=== PATIENT | male | born 1950 | race Caucasian/White ===

== ENCOUNTER 2019-01-03 14:53 | Emergency (ER) | payer MEDICARE ==
--- NOTE | 2019-01-03 15:19 | RAD REPORT ---
EXAM DESCRIPTION: Dmitry Single View01/03/2019 3:12 pm CLINICAL HISTORY: Chest pain COMPARISON: none FINDINGS: The lungs appear clear of acute infiltrate. The heart is normal size IMPRESSION: No acute abnormalities displayed
[2019-01-03 15:23] LABS: Absolute Monocytes 1.7 K/uL (0.1-1.3); Absolute Neutrophil 11.5 K/uL (1.8-8.0); Basophils % 0.9 % (0-1.3); Eosinophils % 0.4 % (0-4.4); Hematocrit 47.8 % (39.6-49.0); MPV 8.5 fL (7.6-11.3); Monocytes % 10.9 % (3.3-12.3); RBC Red Blood Cell Count 5.48 M/uL (4.33-5.43)
[2019-01-03 15:25] LABS: Protime INR 1.02
[2019-01-03 15:31] LABS: Potassium 4.8 mmol/L (3.5-5.1)
--- NOTE | 2019-01-03 15:36 | RAD REPORT ---
EXAM DESCRIPTION: CT - Ct Stroke Brain Wo Cont - 01/03/2019 3:04 pm CLINICAL HISTORY: Confusion/facial droop COMPARISON: October 19, 2018 TECHNIQUE: Computed axial tomography of the head was obtained. All CT scans are performed using dose optimization technique as appropriate and may include automated exposure control or mA/KV adjustment according to patient size. FINDINGS: An intracranial bleed is not seen . The ventricles are normal in caliber. No extra-axial fluid collection is noted. Mild to moderate low-density within periventricular, deep and subcortical white matter likely ischemi c changes secondary to small vessel disease 2 millimeter low-density area within the right basal ganglia has a nonspecific appearance. It may rep resent an old lacunar infarct Fluid within the sinuses/ mastoids is not seen. IMPRESSION: No definite acute intracranial abnormality is seen. If patient's symptoms persist MRI o f the brain would be recommended. Dr Pond of the emergency room was notified at approximately 3:12 p.m. January 03, 2019
[2019-01-03] MEDS ORDERED: NA CHLORIDE 0.9% 500 ML ONE (15:59)
[2019-01-03] MEDS ORDERED: ALTEPLASE 0 ML IV ONE (15:59)
--- NOTE | 2019-01-03 16:06 | ER ---
Nurse's Notes [facility] Name: Marcio Armas Age: 68 yrs Sex: Male : 1950 Arrival Date: 01/03/2019 Time: 14:56 Bed 2 Private MD: Diagnosis: Cerebral infarction Presentation: 01/03 14:57 Presenting complaint: Child states: Last seen normal 12, daughter reports about 30 la1 minutes after that he fell and lost continence of urine, pt has left sided facial droop. Transition of care: patient was not received from another setting of care. 14:57 Method Of Arrival: Wheelchair la1 14:57 Acuity: ANA 1 la1 15:00 Onset of symptoms was January 03, 2019 at 12:00. Risk Assessment: Do you want to hurt hb yourself or someone else? Patient reports no desire to harm self or others. Initial Sepsis Screen: Does the patient meet any 2 criteria? No. Patient's initial sepsis screen is negative. Does the patient have a suspected source of infection? No. Patient's initial sepsis screen is negative. Care prior to arrival: None. Historical: - Allergies: 15:10 No Known Allergies; hb - PMHx: 15:10 COPD; Hepatitis C; hb - Immunization history:: Adult Immunizations up to date. - Social history:: Smoking status: Patient uses tobacco products, smokes one pack cigarettes per day. - Ebola Screening: : No symptoms or risks identified at this time. Screenin:13 Abuse screen: Denies threats or abuse. Denies injuries from another. Nutritional hb screening: No deficits noted. Tuberculosis screening: No symptoms or risk factors identified. Fall Risk None identified. 15:16 Patient has been NPO before screening. The patient is alert, able to follow commands. hb The patient does not exhibit slurred or garbled speech The patient is not exhibiting difficulty speaking. The patient does not exhibit difficulty understanding words. The patient is able to swallow own secretions with no drooling or need for suction. Patient tolerated one teaspoon of water. No drooling, immediate coughing, gurgling, or clearing of the throat was noted. The patient tolerated 90mL of water. No drooling, immediate coughing, gurgling, or clearing of the throat was noted. The patient passed the bedside swallow screening. Oral medications may be given as ordered. Contact Physician for further diet orders. Assessment: 14:54 Reassessment: Code Stroke called from triage, pt transported to CT via wheelchair with soco Randall RN. 15:01 Reassessment: Pt returned from CT. hb 15:02 Reassessment: Dr. Dukes at bedside. hb 15:03 VAN Scoring: Arm Drift: Patients demonstrates NO arm weakness. Patient is VAN Negative. hb 15:04 Reassessment: 20g RIGHT AC, labs collected and sent to outside lab with purple stroke hb sticker. 15:06 Reassessment: BGL 124. hb 15:14 General: Appears in no apparent distress. Behavior is calm, cooperative. Pain: Denies hb pain. Neuro: Level of Consciousness is awake, alert, obeys commands, Oriented to person, place, time, situation, Database Coordinator are equal bilaterally Weakness in left leg(s) Gait is unsteady, Speech is normal, Facial symmetry appears normal, Pupils are PERRLA, Intact. Cardiovascular: Heart tones S1 S2 present Capillary refill < 3 seconds Patient's skin is warm and dry. Respiratory: Airway is patent Trachea midline Respiratory effort is even, unlabored, Respiratory pattern is regular, symmetrical, Breath sounds with rhonchi bilaterally. GI: No signs and/or symptoms were reported involving the gastrointestinal system. : No signs and/or symptoms were reported regarding the genitourinary system. EENT: No signs and/or symptoms were reported regarding the EENT system. Derm: Skin is intact, is healthy with good turgor, Skin is pink, warm \T\ dry. Musculoskeletal: Reports left leg weakness. 15:30 Reassessment: Symptoms improved, - facial droop, - slurred speech, - arm drift, - leg hb drift. Dr. Dukes notified at bedside. 15:41 Reassessment: Sudden left sided facial droop, slurred speech, left arm and left leg hb weakness noted. Dr. Merlos notified. 16:00 Reassessment: TPA started. hb 16:02 Reassessment: Pt to Ct for CTA with Coretta JACKSON, TPA infusion continues. hb 16:26 Reassessment: Pt returned from CTA with Coretta JACKSON, TPA continues. Some symptom hb improvement, left sided facial droop and slurred speech present, - drift, bilat dental coordinator strong and equal. NIHSS 2. Vital Signs: 15:07 BP 117 / 70; Pulse 83; Resp 20; Temp 97.9(TE); Pulse Ox 99% on R/A; Weight 79.38 kg; hb Height 5 ft. 7 in. (170.18 cm); Pain 0/10; 15:07 Body Mass Index 27.41 (79.38 kg, 170.18 cm) hb Apple Coma Score: 15:05 Eye Response: spontaneous(4). Verbal Response: oriented(5). Motor Response: obeys gs commands(6). Total: 15. NIH Stroke Scale Scores: 15:05 NIHSS Score: 1 gs 15:10 NIHSS Score: 1 hb 15:35 NIHSS Score: 11 gs ED Course: 14:56 Patient arrived in ED. as 14:56 Julio Cesar Dukes MD is Attending Physician. gs 14:58 Triage completed. la1 15:04 Inserted saline lock: 20 gauge in right antecubital area, using aseptic technique. hb Blood collected. 15:06 CT Stroke Brain w/o Contrast In Process Unspecified. EDMS 15:08 Coretta Siu, RN is Primary Nurse. hb 15:10 Arm band placed on. hb 15:13 Stroke CXR 1 View In Process Unspecified. EDMS 15:16 Patient has correct armband on for positive identification. Bed in low position. Call hb light in reach. Side rails up X 1. 16:24 CT Head Angio In Process Unspecified. EDMS 16:24 Neck Angio In Process Unspecified. EDMS 16:24 CT completed. Patient tolerated procedure well. Patient moved back from CT. bq 16:47 No provider procedures requiring assistance completed. Patient transferred, IV remains hb in place. Administered Medications: 16:00 Drug: Alteplase {Co-Signature: soco (Coretta Siu RN).} Route: IV Thrombolytics; Rate: iw calculated rate; 16:40 Follow up: Response: No adverse reaction; Marked relief of symptoms hb Point of Care Testing: Blood Glucose: 15:06 Blood Glucose: 124 mg/dL; hb Ranges: Outcome: 16:06 ER care complete, transfer ordered by . gs 16:47 Transferred by ground EMS to [facility]. hb 16:47 Condition: stable 16:47 Instructed on the need for transfer, Demonstrated understanding of instructions. 16:49 Patient left the ED. NIH Stroke Scale - NIH Stroke Score Date: 01/03/2019 Time: 15:05 Total Score = 1 1a. Level of Consciousness (LOC) - 0(Alert) 1b. Level of Consciousness (LOC) (Year \T\ Age) - 0(Both) 1c. LOC Commands (Open \T\ Closes Eyes/[place]) - 0(Both) 2. Best Gaze (Lateral Gaze Paresis) - 0(Normal) 3. Visual Field Loss - 0(No visual loss) 4. Facial Palsy - 0(Normal) 5a. Left Arm: Motor (10-second hold) - 0(No drift) 5b. Right Arm: Motor (10-second hold) - 0(No drift) 6a. Left Leg: Motor (5-second hold - always test supine) - 1(Drift) 6b. Right Leg: Motor (5-second hold - always test supine) - 0(No drift) 7. Limb Ataxia (finger/nose \T\ heel/sam - test with eyes open) - 0(Absent) 8. Sensory Loss (pinprick arms/legs/face) - 0(Normal) 9. Best Language: Aphasia (description/naming/reading) - 0(No aphasia) 10. Dysarthria (speech clarity - read or repeat words) - 0(Normal) 11. Extinction and Inattention (visual/tactile/auditory/spatial/personal) - 0(No abnormality) Initials: NIH Stroke Scale - NIH Stroke Score Date: 01/03/2019 Time: 15:10 Total Score = 1 1a. Level of Consciousness (LOC) - 0(Alert) 1b. Level of Consciousness (LOC) (Year \T\ Age) - 0(Both) 1c. LOC Commands (Open \T\ Closes Eyes/[place]) - 0(Both) 2. Best Gaze (Lateral Gaze Paresis) - 0(Normal) 3. Visual Field Loss - 0(No visual loss) 4. Facial Palsy - 0(Normal) 5a. Left Arm: Motor (10-second hold) - 0(No drift) 5b. Right Arm: Motor (10-second hold) - 0(No drift) 6a. Left Leg: Motor (5-second hold - always test supine) - 1(Drift) 6b. Right Leg: Motor (5-second hold - always test supine) - 0(No drift) 7. Limb Ataxia (finger/nose \T\ heel/sam - test with eyes open) - 0(Absent) 8. Sensory Loss (pinprick arms/legs/face) - 0(Normal) 9. Best Language: Aphasia (description/naming/reading) - 0(No aphasia) 10. Dysarthria (speech clarity - read or repeat words) - 0(Normal) 11. Extinction and Inattention (visual/tactile/auditory/spatial/personal) - 0(No abnormality) Initials: NIH Stroke Scale - NIH Stroke Score Date: 01/03/2019 Time: 15:35 Total Score = 11 1a. Level of Consciousness (LOC) - 0(Alert) 1b. Level of Consciousness (LOC) (Year \T\ Age) - 0(Both) 1c. LOC Commands (Open \T\ Closes Eyes/[place]) - 0(Both) 2. Best Gaze (Lateral Gaze Paresis) - 0(Normal) 3. Visual Field Loss - 0(No visual loss) 4. Facial Palsy - 2(Partial paralysis) 5a. Left Arm: Motor (10-second hold) - 3(No effort against gravity) 5b. Right Arm: Motor (10-second hold) - 0(No drift) 6a. Left Leg: Motor (5-second hold - always test supine) - 3(No effort against gravity) 6b. Right Leg: Motor (5-second hold - always test supine) - 0(No drift) 7. Limb Ataxia (finger/nose \T\ heel/sam - test with eyes open) - 1(Present in one limb) 8. Sensory Loss (pinprick arms/legs/face) - 1(Mild to moderate loss) 9. Best Language: Aphasia (description/naming/reading) - 0(No aphasia) 10. Dysarthria (speech clarity - read or repeat words) - 1(Mild to Moderate) 11. Extinction and Inattention (visual/tactile/auditory/spatial/personal) - 0(No abnormality) Initials: Signatures: Dispatcher [employer] EDMS Jesusita Rivera Amelia as Williams, Irene, RN RENETTA Prakash Bishop RN RN laCoretta Maradiaga RN RN Julio Cesar Dukes MD MD Coretta Siu RN Corrections: (The following items were deleted from the chart) 15:14 14:56 Reassessment: Code Stroke called from triage, pt transported to CT via hb wheelchair with Prakash wan
--- NOTE | 2019-01-03 16:07 | EDPHYS ---
Physician Documentation [facility] Name: Marcio Armas Age: 68 yrs Sex: Male : 1950 Arrival Date: 01/03/2019 Time: 14:56 Bed 2 Private MD: ED Physician Julio Cesar Dukes HPI: 01/03 15:49 This 68 yrs old Male presents to ER via Wheelchair with complaints of S/S of gs Possible Stroke. 15:49 The patient's problem is reported as a facial droop, weakness, in the left upper gs extremity, in the left lower extremity, in the left side of face. Onset: The symptoms/episode began/occurred today, at 12:00. Duration: This was a single incident, resolved. Associated signs and symptoms: Pertinent negatives: abdominal pain, chest pain. Severity of symptoms: At their worst the symptoms were severe in the emergency department the symptoms have resolved and did so just prior to arrival. The patient has experienced a previous episode, last week. Historical: - Allergies: 15:10 No Known Allergies; hb - PMHx: 15:10 COPD; Hepatitis C; hb - Immunization history:: Adult Immunizations up to date. - Social history:: Smoking status: Patient uses tobacco products, smokes one pack cigarettes per day. - Ebola Screening: : No symptoms or risks identified at this time. ROS: 15:49 All other systems are negative. gs Exam: 15:49 Radiologist reports: no bleeding, no obvious cva gs 15:52 Head/Face: Normocephalic, atraumatic. Eyes: Pupils equal round and reactive to light, gs extra-ocular motions intact. Lids and lashes normal. Conjunctiva and sclera are non-icteric and not injected. Cornea within normal limits. Periorbital areas with no swelling, redness, or edema. ENT: Nares patent. No nasal discharge, no septal abnormalities noted. Tympanic membranes are normal and external auditory canals are clear. Oropharynx with no redness, swelling, or masses, exudates, or evidence of obstruction, uvula midline. Mucous membranes moist. Neck: Trachea midline, no thyromegaly or masses palpated, and no cervical lymphadenopathy. Supple, full range of motion without nuchal rigidity, or vertebral point tenderness. No Meningismus. Chest/axilla: Normal chest wall appearance and motion. Nontender with no deformity. No lesions are appreciated. Cardiovascular: Regular rate and rhythm with a normal S1 and S2. No gallops, murmurs, or rubs. Normal PMI, no JVD. No pulse deficits. Respiratory: Lungs have equal breath sounds bilaterally, clear to auscultation and percussion. No rales, rhonchi or wheezes noted. No increased work of breathing, no retractions or nasal flaring. Abdomen/GI: Soft, non-tender, with normal bowel sounds. No distension or tympany. No guarding or rebound. No evidence of tenderness throughout. Back: No spinal tenderness. No costovertebral tenderness. Full range of motion. Skin: Warm, dry with normal turgor. Normal color with no rashes, no lesions, and no evidence of cellulitis. MS/ Extremity: Pulses equal, no cyanosis. Neurovascular intact. Full, normal range of motion. 15:52 Constitutional: The patient appears alert, awake. 15:52 ECG was reviewed by the Attending Physician. Vital Signs: 15:07 BP 117 / 70; Pulse 83; Resp 20; Temp 97.9(TE); Pulse Ox 99% on R/A; Weight 79.38 kg; hb Height 5 ft. 7 in. (170.18 cm); Pain 0/10; 15:07 Body Mass Index 27.41 (79.38 kg, 170.18 cm) hb NIH Stroke Scale Scores: 15:05 NIHSS Score: 1 gs 15:10 NIHSS Score: 1 hb 15:35 NIHSS Score: 11 gs Apple Coma Score: 15:05 Eye Response: spontaneous(4). Verbal Response: oriented(5). Motor Response: obeys gs commands(6). Total: 15. MDM: 15:05 Differential diagnosis: CVA, TIA, paralysis, metabolic disorder. Data reviewed: vital gs signs, nurses notes, lab test result(s), EKG, radiologic studies. Counseling: I had a detailed discussion with the patient and/or guardian regarding: the historical points, exam findings, and any diagnostic results supporting the discharge/admit diagnosis, the need to transfer to another facility. ED course: dramatic change after initial assessment where pt appeared to have completely resolved symptoms therefore a TIA, 1535 sustained neurologic deficits left side, pt awake alert, discussed with dr chin will give tpa, rb discussed no obvious contraindications, also will get cta head and neck. 15:13 Patient medically screened. 01/03 14:57 Order name: Basic Metabolic Panel; Complete Time: 15:51 01/03 14:57 Order name: CBC with Diff; Complete Time: 15:30 01/03 14:57 Order name: Protime (+inr); Complete Time: 15:51 01/03 14:57 Order name: Ptt, Activated; Complete Time: 15:51 01/03 14:57 Order name: CT Stroke Brain w/o Contrast; Complete Time: 15:51 01/03 15:10 Order name: Glucose, Ancillary Testing; Complete Time: 15:15 EDMS 01/03 14:57 Order name: Stroke CXR 1 View; Complete Time: 15:30 01/03 14:57 Order name: EKG; Complete Time: 15:00 01/03 14:57 Order name: Accucheck; Complete Time: 15:19 01/03 14:57 Order name: Cardiac monitoring; Complete Time: 15:19 01/03 15:34 Order name: CT Head Angio; Complete Time: 17:15 01/03 15:45 Order name: Neck Angio; Complete Time: 17:15 EDNV 01/03 14:57 Order name: EKG - Nurse/Tech; Complete Time: 15:19 01/03 14:57 Order name: IV Saline Lock; Complete Time: 15:19 01/03 14:57 Order name: Labs collected and sent; Complete Time: 15:19 01/03 14:57 Order name: NPO; Complete Time: 15:19 01/03 14:57 Order name: O2 Per Protocol; Complete Time: 15:19 01/03 14:57 Order name: O2 Sat Monitoring; Complete Time: 15:19 01/03 14:57 Order name: Stroke Swallow Screen; Complete Time: 15:19 gs EC:52 Rate is 76 beats/min. Rhythm is regular. TX interval is normal. QRS interval is normal. gs QT interval is normal. T waves are Flattened. No ST changes noted. Clinical impression: NSR w/ Non-specific ST/T Changes. Interpreted by me. Administered Medications: 16:00 Drug: Alteplase {Co-Signature: hb (Coretta Siu RN).} Route: IV Thrombolytics; Rate: iw calculated rate; 16:40 Follow up: Response: No adverse reaction; Marked relief of symptoms hb Point of Care Testing: Blood Glucose: 15:06 Blood Glucose: 124 mg/dL; hb Ranges: Critical Glucose Levels:Adult <50 mg/dl or >400 mg/dl <40 mg/dl or >180 mg/dl Disposition: 01/03/19 16:06 Transfer ordered to [facility]. Diagnosis is Cerebral infarction. - Reason for transfer: Higher level of care. - Accepting physician is giuseppe. - Condition is Stable. - Problem is new. - Symptoms are unchanged. Critical care time excluding procedures: 15:05 Critical care time: Bedside Care: 10 minutes, Consultation: 10 minutes, Family gs Intervention: 10 minutes. Total time: 30 minutes NIH Stroke Scale - NIH Stroke Score Date: 01/03/2019 Time: 15:05 Total Score = 1 1a. Level of Consciousness (LOC) - 0(Alert) 1b. Level of Consciousness (LOC) (Year \T\ Age) - 0(Both) 1c. LOC Commands (Open \T\ Closes Eyes/Press Hand Supervisor) - 0(Both) 2. Best Gaze (Lateral Gaze Paresis) - 0(Normal) 3. Visual Field Loss - 0(No visual loss) 4. Facial Palsy - 0(Normal) 5a. Left Arm: Motor (10-second hold) - 0(No drift) 5b. Right Arm: Motor (10-second hold) - 0(No drift) 6a. Left Leg: Motor (5-second hold - always test supine) - 1(Drift) 6b. Right Leg: Motor (5-second hold - always test supine) - 0(No drift) 7. Limb Ataxia (finger/nose \T\ heel/sam - test with eyes open) - 0(Absent) 8. Sensory Loss (pinprick arms/legs/face) - 0(Normal) 9. Best Language: Aphasia (description/naming/reading) - 0(No aphasia) 10. Dysarthria (speech clarity - read or repeat words) - 0(Normal) 11. Extinction and Inattention (visual/tactile/auditory/spatial/personal) - 0(No abnormality) Initials: antonio NIH Stroke Scale - NIH Stroke Score Date: 01/03/2019 Time: 15:10 Total Score = 1 1a. Level of Consciousness (LOC) - 0(Alert) 1b. Level of Consciousness (LOC) (Year \T\ Age) - 0(Both) 1c. LOC Commands (Open \T\ Closes Eyes/Press Hand Supervisor) - 0(Both) 2. Best Gaze (Lateral Gaze Paresis) - 0(Normal) 3. Visual Field Loss - 0(No visual loss) 4. Facial Palsy - 0(Normal) 5a. Left Arm: Motor (10-second hold) - 0(No drift) 5b. Right Arm: Motor (10-second hold) - 0(No drift) 6a. Left Leg: Motor (5-second hold - always test supine) - 1(Drift) 6b. Right Leg: Motor (5-second hold - always test supine) - 0(No drift) 7. Limb Ataxia (finger/nose \T\ heel/sam - test with eyes open) - 0(Absent) 8. Sensory Loss (pinprick arms/legs/face) - 0(Normal) 9. Best Language: Aphasia (description/naming/reading) - 0(No aphasia) 10. Dysarthria (speech clarity - read or repeat words) - 0(Normal) 11. Extinction and Inattention (visual/tactile/auditory/spatial/personal) - 0(No abnormality) Initials: NIH Stroke Scale - NIH Stroke Score Date: 01/03/2019 Time: 15:35 Total Score = 11 1a. Level of Consciousness (LOC) - 0(Alert) 1b. Level of Consciousness (LOC) (Year \T\ Age) - 0(Both) 1c. LOC Commands (Open \T\ Closes Eyes/Press Hand Supervisor) - 0(Both) 2. Best Gaze (Lateral Gaze Paresis) - 0(Normal) 3. Visual Field Loss - 0(No visual loss) 4. Facial Palsy - 2(Partial paralysis) 5a. Left Arm: Motor (10-second hold) - 3(No effort against gravity) 5b. Right Arm: Motor (10-second hold) - 0(No drift) 6a. Left Leg: Motor (5-second hold - always test supine) - 3(No effort against gravity) 6b. Right Leg: Motor (5-second hold - always test supine) - 0(No drift) 7. Limb Ataxia (finger/nose \T\ heel/sam - test with eyes open) - 1(Present in one limb) 8. Sensory Loss (pinprick arms/legs/face) - 1(Mild to moderate loss) 9. Best Language: Aphasia (description/naming/reading) - 0(No aphasia) 10. Dysarthria (speech clarity - read or repeat words) - 1(Mild to Moderate) 11. Extinction and Inattention (visual/tactile/auditory/spatial/personal) - 0(No abnormality) Initials: Signatures: Dispatcher [employer] Pita Brown RN RN Coretta Siu RN RN Julio Cesar Dukes MD MD Coretta Siu RN Corrections: (The following items were deleted from the chart) 16:49 16:06 01/03/2019 16:06 Transfer ordered to [facility]. Diagnosis is Cerebral infarction. Reason for transfer: Higher level of care. Accepting physician is giuseppe. Condition is Stable. Problem is new. Symptoms are unchanged.
--- NOTE | 2019-01-03 16:36 | RAD REPORT ---
EXAM DESCRIPTION: CTHead angio01/03/2019 4:23 pm CLINICAL HISTORY: cva COMPARISON: None TECHNIQUE: CT angiogram of the head was obtained. 3D MIPS reconstruction performed. All CT scans are performed using dose optimization technique as appropriate and may include automated exposure control or mA/KV adjustment according to patient size. FINDINGS: The basilar, internal carotid, anterior cerebral, middle cerebral and posterior cerebral a rteries are normal caliber. An aneurysm is not seen. Dolichoectasia of the vertebrobasilar artery A significant stenosis is not noted. IMPRESSION: No significant abnormality displayed
--- NOTE | 2019-01-03 16:40 | RAD REPORT ---
EXAM DESCRIPTION: Candy Angio01/03/2019 4:24 pm CLINICAL HISTORY: cva COMPARISON: None TECHNIQUE: 50 cc Isovue 370 was administered intravenously. 3D MIP reconstruction performed All CT scans are performed using dose optimization technique as appropriate and may include automated exposure control or mA/KV adjustment according to patient size. FINDINGS: Mild plaque within the right common and right internal carotid arteries Mild plaque within the left common carotid artery and left carotid bulb. Mild calcified plaque within the proximal to mid left internal carotid artery The internal carotid arteries are tortuous The vertebral arteries are codominant without visualization of an abnormality IMPRESSION: Mild plaque within the common and internal carotid arteries. NASCET criteria used. Mild 0-49% stenosis Moderate 50-69% stenosis Severe 70-99% stenosis
--- NOTE | 2019-01-03 20:48 | EKG ---
Test Date: 2019-01-03 Test Time: 15:13:58 [place] Machine Operator: JANET MEASUREMENT RESULTS: Intervals: Rate: 76 OH: 138 QRSD: 94 QT: 372 QTc: 418 Fisher: P: 43 OH: 138 QRS: 43 T: 81 INTERPRETIVE STATEMENTS: Normal sinus rhythm Nonspecific ST and T wave abnormality Abnormal ECG No previous ECG available for comparison Electronically Signed On 01-03-19 20:47:35 CDT by Paul Stacy
== END 2019-01-03 16:49 | disposition short-term general hospital (02) ==
LOC: ER 14:53
DX: I63.9 Cerebral infarction, unspecified (principal); R29.711 NIHSS score 11; J44.9 Chronic obstructive pulmonary disease, unspecified; Z72.0 Tobacco use
CPT/HCPCS: 93005; 85025; 80048; 36415; 85610; 82962; 85730; 70496; 70498; 70450; 71045; 96374; Q9967; 92977; 99291; J2997

== ENCOUNTER 2019-02-15 18:56 | Emergency (ER) | payer MEDICARE ==
--- OUTSIDE RECORDS SUMMARY | 2019-02-15 18:59 | XMS REPORT | Clinical Summary ---
:1950 Author Organization [facility] Address [address] [place] [address] Care Team Providers Name Role Phone Unavailable Primary Care Provider Unavailable Allergies No Known Allergies Medications Medication Sig Dispensed Refills Start Date End Date Status albuterol HFA Inhale 1 puff by 0 Active (VENTOLIN HFA) 90 mouth via mcg/actuation inhaler 4 (four) inhaler times daily as needed for Wheezing. lisinopril Take 10 mg by 0 Active (PRINIVIL,ZESTRIL) mouth daily. 10 MG tablet mometasone-formoter Inhale 1 puff by 0 Active ol (DULERA) 100-5 mouth via mcg/actuation inhaler 3 inhaler (three) times daily. nitroglycerin Place 0.4 mg 0 Active (NITROSTAT) 0.4 MG under the tongue SL tablet every 5 (five) minutes as needed for Chest pain (as needed for chest pain) Put 1 pill under tongue every 5min as needed for chest pain.No more than 3 doses in 15min.Call 911 if pain is unrelieved 5min after 1st dose . aspirin 81 MG Take 1 tablet 30 tablet 2 01/07/2019 Active chewable tablet (81 mg total) by 9 mouth daily for 90 days. atorvastatin Take 1 tablet 30 tablet 2 01/06/2019 Active (LIPITOR) 80 MG (80 mg total) by 9 tablet mouth nightly for 90 days. carvedilol (COREG) Take 1 tablet 60 tablet 2 01/08/2019 Active 3.125 MG tablet (3.125 mg total) 9 by mouth 2 (two) times daily for 90 days. amLODIPine Take 1 tablet 30 tablet 2 01/08/2019 Active (NORVASC) 10 MG (10 mg total) by 9 tablet mouth daily for 90 days. sodium chloride 1 Take 1 tablet (1 21 tablet 0 01/06/2019 gram tablet g total) by 9 mouth 3 (three) times daily with meals for 7 days. amLODIPine Take 1 tablet 30 tablet 2 01/08/2019 Discontinued (NORVASC) 10 MG (10 mg total) by 9 tablet mouth daily for 90 days. Active Problems Problem Noted Date Left hemiparesis 01/05/2019 Chronic bronchitis 01/04/2019 Stroke 01/03/2019 Encounters Date Type Specialty Care Team Description 01/07/2019 Surgery Meri Guevara CATH & PCI MD Edwin 01/05/2019 Orders Only General Internal Medicine 01/03/2019 - Hospital Encounter General Internal Trell, Cerebrovascular accident (CVA), unspecified mechanism (HCC); 01/08/2019 Medicine MD Guillermo TIA (transient ischemic attack); Kavin Edgar Atrial fibrillation, transient (HCC); MD Cain Abnormal nuclear stress test; Adan Coronary artery disease involving mashpee coronary artery of mashpee heart without angina pectoris Farzaneh Holliday MD 01/03/2019 Travel after 02/14/2018 Social History Tobacco Use Types Packs/Day Years Used Date Current Every Day Smoker 2 Smokeless Tobacco: Never Used Comments: smokling for the last 55 years Alcohol Use Drinks/Week oz/Week Comments Yes 2 Cans of beer 1.2 2-3 cans of beer a day Sex Assigned at Date Recorded Not on file Job Start Date Occupation Industry Not on file Not on file Not on file Travel History Travel Start Travel End No recent travel history available. Last Filed Vital Signs Vital Sign Reading Time Taken Blood Pressure 167/80 01/08/2019 10:30 AM CDT Pulse 73 01/08/2019 10:30 AM CDT Temperature 36.6 C (97.9 F) 01/08/2019 10:30 AM CDT Respiratory Rate 18 01/08/2019 10:30 AM CDT Oxygen Saturation 97% 01/08/2019 10:30 AM CDT Inhaled Oxygen Concentration - - Weight 80.3 kg (177 lb) 01/08/2019 6:00 AM CDT Height 165.1 cm (5' 5") 01/03/2019 6:00 PM CDT Body Mass Index 29.45 01/08/2019 6:00 AM CDT Plan of Treatment Not on file Procedures Procedure Name Priority Date/Time Associated Diagnosis Comments REPORT OF PROCEDURE - 01/12/2019 6:40 ENDOSCOPY SCAN AM CDT CARDIAC CATH REPORT - 01/12/2019 6:40 SCAN AM CDT RHYTHM STRIP - SCAN 01/12/2019 6:40 AM CDT L CATH & PCI 01/07/2019 6:31 Chest pain, PM CDT unspecified type CBC W/PLT COUNT & Routine 01/07/2019 8:06 Results for this AUTO DIFFERENTIAL AM CDT procedure are in the results section. PROTHROMBIN TIME/INR Routine 01/07/2019 8:06 Results for this AM CDT procedure are in the results section. BASIC METABOLIC PANEL Routine 01/07/2019 8:06 Results for this (7) AM CDT procedure are in the results section. CBC W/PLT COUNT & Routine 01/07/2019 8:06 Results for this AUTO DIFFERENTIAL AM CDT procedure are in the results section. NM MYOCARDIAL Routine 01/06/2019 1:09 Results for this PERFUSION SPECT, PM CDT procedure are in PHARM(LEXISCAN) the results section. TREADMILL Routine 01/06/2019 11:28 Results for this TOLERANCE(NON-NUCLEAR AM CDT procedure are in TREADMILL) the results section. ECG 12-LEAD Routine 01/06/2019 11:17 Results for this AM CDT procedure are in the results section. ECG 12-LEAD Routine 01/06/2019 11:17 Results for this AM CDT procedure are in the results section. ECG 12-LEAD Routine 01/06/2019 11:17 AM CDT Procedure Note - Interface, External Ris In - 01/06/2019 11:51 AM CDT Ventricular Rate 64 BPM Atrial Rate 64 BPM P-R Interval 148 ms QRS Duration 102 ms Q-T Interval 400 ms QTC Calculation(Bazett) 412 ms P [place] 49 degrees R [place] 47 degrees T [place] 61 degrees Normal sinus rhythm Normal ECG CBC W/PLT COUNT & AUTO Routine 01/06/2019 3:54 AM CDT Results for this DIFFERENTIAL procedure are in the results section. CBC W/PLT COUNT & AUTO Routine 01/06/2019 3:54 AM CDT Results for this DIFFERENTIAL procedure are in the results section. BASIC METABOLIC PANEL (7) Routine 01/06/2019 3:54 AM CDT ECG 12-LEAD Routine 01/05/2019 3:36 PM CDT Procedure Note - Interface, External Ris In - 01/05/2019 3:42 PM CDT Ventricular Rate 65 BPM Atrial Rate 65 BPM P-R Interval 150 ms QRS Duration 98 ms Q-T Interval 388 ms QTC Calculation(Bazett) 403 ms P [place] 29 degrees R [place] 25 degrees T [place] 52 degrees Normal sinus rhythm Normal ECG No previous ECGs available ECG 12-LEAD STAT 01/05/2019 3:36 PM CDT CBC W/PLT COUNT & AUTO Routine 01/05/2019 3:11 AM CDT Results for this DIFFERENTIAL procedure are in the results section. CBC W/PLT COUNT & AUTO Routine 01/05/2019 3:11 AM CDT Results for this DIFFERENTIAL procedure are in the results section. BASIC METABOLIC PANEL (7) Routine 01/05/2019 3:11 AM CDT ECHOCARDIOGRAM REPORT - SCAN 01/04/2019 9:21 PM CDT MR BRAIN WITHOUT IV CONTRAST Routine 01/04/2019 6:[address] ABDOMEN/PELVIS WITH IV Routine 01/04/2019 5:58 PM CDT Results for this CONTRAST procedure are in the results section. CT CHEST WITH IV CONTRAST Routine 01/04/2019 5:58 PM CDT HEPATIC FUNCTION PANEL Routine 01/04/2019 1:46 PM CDT MAGNESIUM Routine 01/04/2019 10:00 AM CDT 2D ECHO W/ DOPPLER Routine 01/04/2019 9:27 AM CDT Results for this (CW/PW/COLOR) procedure are in the results section. CBC W/PLT COUNT & AUTO Routine 01/04/2019 3:43 AM CDT Results for this DIFFERENTIAL procedure are in the results section. MAGNESIUM Routine 01/04/2019 3:43 AM CDT PHOSPHORUS Routine 01/04/2019 3:43 AM CDT CBC W/PLT COUNT & AUTO Routine 01/04/2019 3:43 AM CDT Results for this DIFFERENTIAL procedure are in the results section. LIPID PANEL Routine 01/04/2019 3:43 AM CDT BASIC METABOLIC PANEL (7) Routine 01/04/2019 3:43 AM CDT TSH Routine 01/03/2019 7:33 PM CDT VITAMIN B12 Routine 01/03/2019 7:33 PM CDT HEMOGLOBIN A1C Routine 01/03/2019 7:33 PM CDT after 02/14/2018 Results EKG-SCANNED (01/12/2019 6:40 AM CDT) Narrative Performed At CARDIAC CATH REPORT - SCAN (01/12/2019 6:40 AM CDT) Narrative Performed At RHYTHM STRIP - SCAN (01/12/2019 6:40 AM CDT) Narrative Performed At CBC with platelet count + automated diff (01/07/2019 8:06 AM CDT)Only the most recent of4 resultswithin the time period is included. WBC 9.1 3.5 - 10.5 K/L [facility] RBC 5.24 4.63 - 6.08 M/L [facility] Hemoglobin 15.4 13.7 - 17.5 GM/DL [facility] Hematocrit 44.4 40.1 - 51.0 % [facility] MCV 84.7 79.0 - 92.2 fL [facility] MCH 29.4 25.7 - 32.2 pg [facility] MCHC 34.7 32.3 - 36.5 GM/DL [facility] RDW 13.3 11.6 - 14.4 % [facility] Platelets 229 150 - 450 K/CU MM [facility] MPV 9.5 9.4 - 12.4 fL [facility] nRBC 0 0 - 0 /100 WBC [facility] % Neutros 66 % [facility] % Lymphs 21 % [facility] % Monos 10 % [facility] % Eos 2 % [facility] % Baso 1 % [facility] # Neutros 6.00 (H) 1.78 - 5.38 K/L [facility] # Lymphs 1.86 1.32 - 3.57 K/L [facility] # Monos 0.91 (H) 0.30 - 0.82 K/L [facility] # Eos 0.18 0.04 - 0.54 K/L [facility] # Baso 0.08 0.01 - 0.08 K/L [facility] Immature Granulocytes-Relative 0 0 - 1 % [facility] Specimen Blood Performing Organization Address City/[facility]/Zipcode Phone Number [address] [address] CENTER Prothrombin time/INR (01/07/2019 8:06 AM CDT) Protime 13.0 11.9 - 14.2 seconds [facility] INR 1.0 <=5.9 [facility] Specimen Blood Narrative Performed At Effective 12/16/2018: PT Reference Range [facility] Change New: 11.9-14.2Previous: 11.7-14.7 RECOMMENDED COUMADIN/WARFARIN INR THERAPY RANGES STANDARD DOSE: 2.0-3.0Includes: PROPHYLAXIS for venous thrombosis, systemic embolization; TREATMENT for venous thrombosis and/or pulmonary embolus. HIGH RISK: Target INR is 2.5-3.5 for patients wiht mechanical heart valves. Performing Organization Address City/[facility] Phone Number [address] [address] [phone] [facility] Basic Metabolic Panel (01/07/2019 8:06 AM CDT)Only the most recent of4 resultswithin the time period is included. Sodium 129 (L) 136 - 145 meq/L [facility] Potassium 4.8 3.5 - 5.1 meq/L [facility] Chloride 99 98 - 107 meq/L [facility] CO2 23 22 - 29 meq/L [facility] BUN 11 7 - 21 mg/dL [facility] Creatinine 0.88 0.57 - 1.25 mg/dL [facility] Glucose 105 70 - 105 mg/dL [facility] Calcium 9.3 8.4 - 10.2 mg/dL [facility] EGFR 86Comment: ESTIMATED GFR IS mL/min/1.73 sq m [facility] NOT ACCURATE CREATININE [facility] CLEARANCE IN PREDICTING GLOMERULAR FILTRATION RATE. ESTIMATED GFR IS NOT APPLICABLE FOR DIALYSIS PATIENTS. Specimen Blood Performing Organization Address City/State/Zipcode Phone Number [phone] [place] [address] [facility] NM myocardial perfusion SPECT,pharm(Lexiscan) (01/06/2019 1:09 PM CDT) Specimen Narrative Performed At FINAL REPORT [facility] PROCEDURE: MYOCARDIAL PERFUSION SPECT IMAGING (Rest/Stress) CPT CODE: 33647 INDICATION: ventricular arrhythmia CARDIOVASCULAR PROFILE: CAD History: None Risk Factors: Diabetes, tobacco use, obesity BMI: 30.5 Medications: Aspirin, atorvastatin, Lovenox STRESS PROTOCOL: Pharmacologic stress was achieved with a 10-second intravenous infusion of regadenoson 0.4 mg. The radiopharmaceutical was administered 30 seconds after the start of the regadenoson infusion. IMAGING PROTOCOL: 10.8 mCi of Tc-99m sestamibi was injected intravenously at rest, and non-gated SPECT images were obtained. Then, 30.6 mCi of Tc-99m sestamibi was injected intravenously at peak stress, and gated SPECT images were obtained. Image quality is fair. REST FINDINGS: HR: 67/min BP: 151/78 mmHg Prelim. EKG: Normal sinus rhythm. Perfusion: Decreased uptake in the inferior wall of the LV. STRESS FINDINGS: HR: 83/min (55% of MPHR) BP: 168/98 mmHg Prelim. EKG: No ischemic changes. Symptoms: Dyspnea and abdominal discomfort (treatment not required). Perfusion: Decreased uptake in the inferior wall of the LV. Wall Motion: Mild inferior hypokinesis. (LVEF 48%). IMPRESSION: 1. Abnormal study. 2. Abnormal myocardial perfusion. There is a moderate size, moderate severity, fixed perfusion abnormality in the inferior wall of the LV. 3. Mildly decreased LVEF at rest. 4. Normal extracardiac tracer distribution. 5. There is no prior study for comparison. Signed: Roselia Hope MD Report Verified Date/Time:01/06/2019 16:31:33 Reading Location: [address] Reading Room Procedure Note Interface, External Ris In - 01/06/2019 4:33 PM CDT FINAL REPORT PROCEDURE: MYOCARDIAL PERFUSION SPECT IMAGING (Rest/Stress) CPT CODE: 81076 INDICATION: ventricular arrhythmia CARDIOVASCULAR PROFILE: CAD History: None Risk Factors: Diabetes, tobacco use, obesity BMI: 30.5 Medications: Aspirin, atorvastatin, Lovenox STRESS PROTOCOL: Pharmacologic stress was achieved with a 10-second intravenous infusion of regadenoson 0.4 mg. The radiopharmaceutical was administered 30 seconds after the start of the regadenoson infusion. IMAGING PROTOCOL: 10.8 mCi of Tc-99m sestamibi was injected intravenously at rest, and non-gated SPECT images were obtained. Then, 30.6 mCi of Tc-99m sestamibi was injected intravenously at peak stress, and gated SPECT images were obtained. Image quality is fair. REST FINDINGS: HR: 67/min BP: 151/78 mmHg Prelim. EKG: Normal sinus rhythm. Perfusion: Decreased uptake in the inferior wall of the LV. STRESS FINDINGS: HR: 83/min (55% of MPHR) BP: 168/98 mmHg Prelim. EKG: No ischemic changes. Symptoms: Dyspnea and abdominal discomfort (treatment not required). Perfusion: Decreased uptake in the inferior wall of the LV. Wall Motion: Mild inferior hypokinesis. (LVEF 48%). IMPRESSION: 1. Abnormal study. 2. Abnormal myocardial perfusion. There is a moderate size, moderate severity, fixed perfusion abnormality in the inferior wall of the LV. 3. Mildly decreased LVEF at rest. 4. Normal extracardiac tracer distribution. 5. There is no prior study for comparison. Signed: Roselia Hope MD Report Verified Date/Time: 01/06/2019 16:31:33 Reading Location: [address] Reading Room Performing Organization Address City/State/[facility] Phone Number GE RIS Treadmill tolerance(Non-Nuclear Treadmill) (01/06/2019 11:28 AM CDT) Specimen Narrative Performed At Protocol Name [facility] GE MUSE Time In Exercise Phase 00:01:00 Max. Systolic BP 168 mmHg Max Diastolic BP 98 mmHg Max Heart Rate 83 BPM Max Predicted Heart Rate 150 BPM Reason For Termination Predetermined end point Reason for Test Abnormal ECG/Ventriculat tachycardia Target HR Formula (220 - Age)*100% Arrhythmias none Resting ECG Normal sinus rhythm ST Changes No Significant Changes Overall Impression Indeterminate due to pharmacological stress Chest Pain none HR Response To Exercise BP Response To Exercise ASA,Atorvastatin,Lovenox Confirmed by fellow Herberth Maier ([id number]) on 01/15/2019 9:09:35 AM Confirmed by MD ESPINO YOCHAI [id number]) on 01/18/2019 10:43:31 AM Procedure Note Interface, External Ris In - 01/18/2019 10:43 AM CDT Protocol Name [email or web address] Time In Exercise Phase 00:01:00 Max. Systolic BP 168 mmHg Max Diastolic BP 98 mmHg Max Heart Rate 83 BPM Max Predicted Heart Rate 150 BPM Reason For Termination Predetermined end point Reason for Test Abnormal ECG/Ventriculat tachycardia Target HR Formula (220 - Age)*100% Arrhythmias none Resting ECG Normal sinus rhythm ST Changes No Significant Changes Overall Impression Indeterminate due to pharmacological stress Chest Pain none HR Response To Exercise BP Response To Exercise ASA,Atorvastatin,Lovenox Confirmed by fellow Herberth Maier ([id number]) on 01/15/2019 9:09:35 AM Confirmed by MD ESPINO YOCHAI ([id number]) on 01/18/2019 10:43:31 AM Performing Organization Address City/[facility] Phone Number GE MUSE ECG 12 lead (01/06/2019 11:17 AM CDT)Only the most recent of3 resultswithin the time period is included. Specimen Narrative Performed At Ventricular Rate 64 BPM GE MUSE Atrial Rate 64 BPM P-R Interval 148 ms QRS Duration 102 ms Q-T Interval 400 ms QTC Calculation(Bazett) 412 ms P [place] 49 degrees R [place] 47 degrees T [place] 61 degrees Normal sinus rhythm Normal ECG Confirmed by MD TSANG JORGE ([id number]) on 01/15/2019 12:00:51 PM Procedure Note Interface, External Ris In - 01/15/2019 12:01 PM CDT Ventricular Rate 64 BPM Atrial Rate 64 BPM P-R Interval 148 ms QRS Duration 102 ms Q-T Interval 400 ms QTC Calculation(Bazett) 412 ms P [place] 49 degrees R [place] 47 degrees T [place] 61 degrees Normal sinus rhythm Normal ECG Confirmed by MD TSANG JORGE ([id number]) on 01/15/2019 12:00:51 PM Performing Organization Address [facility] Phone Number [employer] ECHOCARDIOGRAM REPORT - SCAN (01/04/2019 9:21 PM CDT) Narrative Performed At MR brain without IV contrast (01/04/2019 6:35 PM CDT) Specimen Narrative Performed At FINAL REPORT [facility] MR, BRAIN, WITHOUT CONTRAST INDICATION: Stroke Stroke TECHNIQUE: Multiplanar, multisequence MR imaging of the brain without intravenous contrast. COMPARISON: None FINDINGS: There is no restricted diffusion.Scattered and confluent deep white matter changes are present bilaterally, compatible with leukoaraiosis. There is no mass effect or abnormal extra-axial fluid. The ventricles are normal in size and configuration. The larger intracranial vascular flow-voids are preserved. Paranasal sinuses and mastoid air cells are clear. There is normal bone marrow signal intensity within the calvarium and skull base. IMPRESSION: Senescent intracranial changes without evidence for acute or recent stroke or hemorrhage. Signed: JR Macdonald Robert MD Report Verified Date/Time:01/04/2019 19:00:21 Reading Location: [address] Neuro Reading Room Procedure Note Interface, External Ris In - 01/04/2019 7:02 PM CDT FINAL REPORT MR, BRAIN, WITHOUT CONTRAST INDICATION: Stroke Stroke TECHNIQUE: Multiplanar, multisequence MR imaging of the brain without intravenous contrast. COMPARISON: None FINDINGS: There is no restricted diffusion. Scattered and confluent deep white matter changes are present bilaterally, compatible with leukoaraiosis. There is no mass effect or abnormal extra-axial fluid. The ventricles are normal in size and configuration. The larger intracranial vascular flow-voids are preserved. Paranasal sinuses and mastoid air cells are clear. There is normal bone marrow signal intensity within the calvarium and skull base. IMPRESSION: Senescent intracranial changes without evidence for acute or recent stroke or hemorrhage. Signed: JR Macdonald Robert MD Report Verified Date/Time: 01/04/2019 19:00:21 Reading Location: [facility] Neuro Reading Room Performing Organization Address City/State/Zipcode Phone Number [facility] CT abdomen/pelvis with IV contrast (01/04/2019 5:58 PM CDT) Specimen Narrative Performed At FINAL REPORT [facility] TECHNIQUE: CT of the chest, abdomen, and pelvis WITH intravenous contrast and WITHOUT oral contrast. Dose modulation, iterative reconstruction, and/or weight-based adjustment of the mA/kV was utilized to reduce the radiation dose to as low as reasonably achievable. INDICATION: 68-year-old man with COPD and hepatitis C. COMPARISON: None. FINDINGS: LINES/TUBES: None. LUNGS AND AIRWAYS: Central airways are patent. Mild paraseptal emphysema. Trace mucus/debris in the left mainstem bronchus. 6 mm subpleural noncalcified nodule in the left upper lobe (axial lung window series image 14). PLEURA: The pleural spaces are clear. HEART AND MEDIASTINUM: The visualized thyroid gland is normal. No significant mediastinal, hilar, or axillary lymphadenopathy. The heart and pericardium are within normal limits. Atherosclerotic calcifications in the thoracic aorta and coronary arteries. HEPATOBILIARY: No overt cirrhosis or definite hepatic steatosis. Few scattered hepatic cysts measure up to 1 x 1.3 cm in the left hepatic lobe. 0.7 cm hypodensity in segment VII of the liver is too small to characterize. Gallbladder is unremarkable. No biliary ductal dilatation. SPLEEN: No splenomegaly. PANCREAS: No focal masses or ductal dilatation. Tiny subcentimeter calcification in the pancreatic neck. ADRENALS: 1.3 x 1.1 cm homogeneous right adrenal nodule. 1.5 x 1.1 cm homogeneous nodule in the medial limb of the left adrenal gland. KIDNEYS/URETERS: No hydronephrosis, stones, or solid mass lesions. PELVIC ORGANS/BLADDER: Enlarged prostate. The contents of the bladder are slightly hyperdense. PERITONEUM/RETROPERITONEUM: No free air or fluid. LYMPH NODES: Mildly prominent 1.1 cm periportal lymph node is nonspecific and likely reactive. VESSELS: Atherosclerotic vascular calcifications in the abdominal aorta and bilateral iliac arteries without aneurysm. Retroaortic left renal vein. GI TRACT: No distention or wall thickening. Normal appendix. BONES AND SOFT TISSUES: Degenerative changes of the visualized spine. Orthopedic hardware in both scapulas. Fat-containing left inguinal/femoral hernia. Tiny fat-containing umbilical hernia. IMPRESSION: Chest CT: *Mild emphysema. *6 mm pulmonary nodule in the left upper lobe. Follow-up chest CT is recommended in 6 months to reassess this pulmonary nodule. Abdomen and pelvis CT: *No overt cirrhosis or definite hepatic steatosis. Suboptimal evaluation for hepatocellular carcinoma on this single-phase contrast-enhanced CT. Hepatic cysts with a subcentimeter hypodensity that is too small to characterize. Abdomen MRI or CT with and without intravenous contrast (liver protocol) may be obtained for further evaluation. *Bilateral homogeneous adrenal nodules, probable adenomas. These nodules may also be further assessed on the aforementioned abdomen MRI or CT. *Slightly hyperdense contents of the bladder, which may be seen with concentrated or debris-containing urine. This finding may be correlated with urinalysis. Signed: Vipin Madsen MD Report Verified Date/Time:01/04/2019 22:53:46 Reading Location: [address] Consult Reading Room Procedure Note Interface, External Ris In - 01/04/2019 10:56 PM CDT FINAL REPORT TECHNIQUE: CT of the chest, abdomen, and pelvis WITH intravenous contrast and WITHOUT oral contrast. Dose modulation, iterative reconstruction, and/or weight-based adjustment of the mA/kV was utilized to reduce the radiation dose to as low as reasonably achievable. INDICATION: 68-year-old man with COPD and hepatitis C. COMPARISON: None. FINDINGS: LINES/TUBES: None. LUNGS AND AIRWAYS: Central airways are patent. Mild paraseptal emphysema. Trace mucus/debris in the left mainstem bronchus. 6 mm subpleural noncalcified nodule in the left upper lobe (axial lung window series image 14). PLEURA: The pleural spaces are clear. HEART AND MEDIASTINUM: The visualized thyroid gland is normal. No significant mediastinal, hilar, or axillary lymphadenopathy. The heart and pericardium are within normal limits. Atherosclerotic calcifications in the thoracic aorta and coronary arteries. HEPATOBILIARY: No overt cirrhosis or definite hepatic steatosis. Few scattered hepatic cysts measure up to 1 x 1.3 cm in the left hepatic lobe. 0.7 cm hypodensity in segment VII of the liver is too small to characterize. Gallbladder is unremarkable. No biliary ductal dilatation. SPLEEN: No splenomegaly. PANCREAS: No focal masses or ductal dilatation. Tiny subcentimeter calcification in the pancreatic neck. ADRENALS: 1.3 x 1.1 cm homogeneous right adrenal nodule. 1.5 x 1.1 cm homogeneous nodule in the medial limb of the left adrenal gland. KIDNEYS/URETERS: No hydronephrosis, stones, or solid mass lesions. PELVIC ORGANS/BLADDER: Enlarged prostate. The contents of the bladder are slightly hyperdense. PERITONEUM/RETROPERITONEUM: No free air or fluid. LYMPH NODES: Mildly prominent 1.1 cm periportal lymph node is nonspecific and likely reactive. VESSELS: Atherosclerotic vascular calcifications in the abdominal aorta and bilateral iliac arteries without aneurysm. Retroaortic left renal vein. GI TRACT: No distention or wall thickening. Normal appendix. BONES AND SOFT TISSUES: Degenerative changes of the visualized spine. Orthopedic hardware in both scapulas. Fat-containing left inguinal/femoral hernia. Tiny fat-containing umbilical hernia. IMPRESSION: Chest CT: *Mild emphysema. *6 mm pulmonary nodule in the left upper lobe. Follow-up chest CT is recommended in 6 months to reassess this pulmonary nodule. Abdomen and pelvis CT: *No overt cirrhosis or definite hepatic steatosis. Suboptimal evaluation for hepatocellular carcinoma on this single-phase contrast-enhanced CT. Hepatic cysts with a subcentimeter hypodensity that is too small to characterize. Abdomen MRI or CT with and without intravenous contrast (liver protocol) may be obtained for further evaluation. *Bilateral homogeneous adrenal nodules, probable adenomas. These nodules may also be further assessed on the aforementioned abdomen MRI or CT. *Slightly hyperdense contents of the bladder, which may be seen with concentrated or debris-containing urine. This finding may be correlated with urinalysis. Signed: Vipin Madsen MD Report Verified Date/Time: 01/04/2019 22:53:46 Reading Location: [address] Consult Reading Room Performing Organization Address City/State/Zipcode Phone Number [facility] CT chest with IV contrast (01/04/2019 5:58 PM CDT) Specimen Narrative Performed At FINAL REPORT [facility] TECHNIQUE: CT of the chest, abdomen, and pelvis WITH intravenous contrast and WITHOUT oral contrast. Dose modulation, iterative reconstruction, and/or weight-based adjustment of the mA/kV was utilized to reduce the radiation dose to as low as reasonably achievable. INDICATION: 68-year-old man with COPD and hepatitis C. COMPARISON: None. FINDINGS: LINES/TUBES: None. LUNGS AND AIRWAYS: Central airways are patent. Mild paraseptal emphysema. Trace mucus/debris in the left mainstem bronchus. 6 mm subpleural noncalcified nodule in the left upper lobe (axial lung window series image 14). PLEURA: The pleural spaces are clear. HEART AND MEDIASTINUM: The visualized thyroid gland is normal. No significant mediastinal, hilar, or axillary lymphadenopathy. The heart and pericardium are within normal limits. Atherosclerotic calcifications in the thoracic aorta and coronary arteries. HEPATOBILIARY: No overt cirrhosis or definite hepatic steatosis. Few scattered hepatic cysts measure up to 1 x 1.3 cm in the left hepatic lobe. 0.7 cm hypodensity in segment VII of the liver is too small to characterize. Gallbladder is unremarkable. No biliary ductal dilatation. SPLEEN: No splenomegaly. PANCREAS: No focal masses or ductal dilatation. Tiny subcentimeter calcification in the pancreatic neck. ADRENALS: 1.3 x 1.1 cm homogeneous right adrenal nodule. 1.5 x 1.1 cm homogeneous nodule in the medial limb of the left adrenal gland. KIDNEYS/URETERS: No hydronephrosis, stones, or solid mass lesions. PELVIC ORGANS/BLADDER: Enlarged prostate. The contents of the bladder are slightly hyperdense. PERITONEUM/RETROPERITONEUM: No free air or fluid. LYMPH NODES: Mildly prominent 1.1 cm periportal lymph node is nonspecific and likely reactive. VESSELS: Atherosclerotic vascular calcifications in the abdominal aorta and bilateral iliac arteries without aneurysm. Retroaortic left renal vein. GI TRACT: No distention or wall thickening. Normal appendix. BONES AND SOFT TISSUES: Degenerative changes of the visualized spine. Orthopedic hardware in both scapulas. Fat-containing left inguinal/femoral hernia. Tiny fat-containing umbilical hernia. IMPRESSION: Chest CT: *Mild emphysema. *6 mm pulmonary nodule in the left upper lobe. Follow-up chest CT is recommended in 6 months to reassess this pulmonary nodule. Abdomen and pelvis CT: *No overt cirrhosis or definite hepatic steatosis. Suboptimal evaluation for hepatocellular carcinoma on this single-phase contrast-enhanced CT. Hepatic cysts with a subcentimeter hypodensity that is too small to characterize. Abdomen MRI or CT with and without intravenous contrast (liver protocol) may be obtained for further evaluation. *Bilateral homogeneous adrenal nodules, probable adenomas. These nodules may also be further assessed on the aforementioned abdomen MRI or CT. *Slightly hyperdense contents of the bladder, which may be seen with concentrated or debris-containing urine. This finding may be correlated with urinalysis. Signed: Vipin Madsen MD Report Verified Date/Time:01/04/2019 22:53:46 Reading Location: [address] Consult Reading Room Procedure Note Interface, External Ris In - 01/04/2019 10:56 PM CDT FINAL REPORT TECHNIQUE: CT of the chest, abdomen, and pelvis WITH intravenous contrast and WITHOUT oral contrast. Dose modulation, iterative reconstruction, and/or weight-based adjustment of the mA/kV was utilized to reduce the radiation dose to as low as reasonably achievable. INDICATION: 68-year-old man with COPD and hepatitis C. COMPARISON: None. FINDINGS: LINES/TUBES: None. LUNGS AND AIRWAYS: Central airways are patent. Mild paraseptal emphysema. Trace mucus/debris in the left mainstem bronchus. 6 mm subpleural noncalcified nodule in the left upper lobe (axial lung window series image 14). PLEURA: The pleural spaces are clear. HEART AND MEDIASTINUM: The visualized thyroid gland is normal. No significant mediastinal, hilar, or axillary lymphadenopathy. The heart and pericardium are within normal limits. Atherosclerotic calcifications in the thoracic aorta and coronary arteries. HEPATOBILIARY: No overt cirrhosis or definite hepatic steatosis. Few scattered hepatic cysts measure up to 1 x 1.3 cm in the left hepatic lobe. 0.7 cm hypodensity in segment VII of the liver is too small to characterize. Gallbladder is unremarkable. No biliary ductal dilatation. SPLEEN: No splenomegaly. PANCREAS: No focal masses or ductal dilatation. Tiny subcentimeter calcification in the pancreatic neck. ADRENALS: 1.3 x 1.1 cm homogeneous right adrenal nodule. 1.5 x 1.1 cm homogeneous nodule in the medial limb of the left adrenal gland. KIDNEYS/URETERS: No hydronephrosis, stones, or solid mass lesions. PELVIC ORGANS/BLADDER: Enlarged prostate. The contents of the bladder are slightly hyperdense. PERITONEUM/RETROPERITONEUM: No free air or fluid. LYMPH NODES: Mildly prominent 1.1 cm periportal lymph node is nonspecific and likely reactive. VESSELS: Atherosclerotic vascular calcifications in the abdominal aorta and bilateral iliac arteries without aneurysm. Retroaortic left renal vein. GI TRACT: No distention or wall thickening. Normal appendix. BONES AND SOFT TISSUES: Degenerative changes of the visualized spine. Orthopedic hardware in both scapulas. Fat-containing left inguinal/femoral hernia. Tiny fat-containing umbilical hernia. IMPRESSION: Chest CT: *Mild emphysema. *6 mm pulmonary nodule in the left upper lobe. Follow-up chest CT is recommended in 6 months to reassess this pulmonary nodule. Abdomen and pelvis CT: *No overt cirrhosis or definite hepatic steatosis. Suboptimal evaluation for hepatocellular carcinoma on this single-phase contrast-enhanced CT. Hepatic cysts with a subcentimeter hypodensity that is too small to characterize. Abdomen MRI or CT with and without intravenous contrast (liver protocol) may be obtained for further evaluation. *Bilateral homogeneous adrenal nodules, probable adenomas. These nodules may also be further assessed on the aforementioned abdomen MRI or CT. *Slightly hyperdense contents of the bladder, which may be seen with concentrated or debris-containing urine. This finding may be correlated with urinalysis. Signed: Vipin Madsen MD Report Verified Date/Time: 01/04/2019 22:53:46 Reading Location: [address] Consult Reading Room Performing Organization Address [facility] Services[facility] Phone Number [facility]IS Hepatic function panel (01/04/2019 1:46 PM CDT) Protein, Total 7.1Comment: Specimen 6.0 - 8.3 gm/dL [facility] slightly hemolyzed [facility] Albumin 3.7Comment: Specimen 3.5 - 5.0 g/dL [facility] slightly hemolyzed [facility] Total Bilirubin 0.6Comment: Specimen 0.2 - 1.2 mg/dL [facility] hemolyzed [facility] Bilirubin, Direct 0.2Comment: Specimen 0.1 - 0.5 mg/dL [facility] hemolyzed [facility] Alkaline Phosphatase 91 40 - 150 U/L [facility] AST 33Comment: Specimen 5 - 34 U/L [facility] hemolyzed [facility] ALT 64 (H)Comment: Specimen 6 - 55 U/L [facility] slightly hemolyzed [facility] Specimen Blood Performing Organization Address [facility] Servicescori Phone Number [facility] [address] [place] [id number] CENTER Magnesium (01/04/2019 10:00 AM CDT)Only the most recent of2 resultswithin the time period is included. Magnesium 2.8 (H)Comment: Specimen 1.6 - 2.6 mg/dL [facility] moderately hemolyzed [facility] Specimen Blood Performing Organization Address [facility] Servicescode Phone Number [facility] [address] [place] [phone] CENTER 2D Echo W/Doppler(CW/PW/Color) with saline (01/04/2019 9:27 AM CDT) Ejection Fraction [facility] Specimen Narrative Performed At Transthoracic Echocardiography Report (TTE) [facility] Demographics Patient NameEmperatriz MCLAUGHLIN of Study01/04/2019 Male Visit [id number] Unknown Room [id number] Number Date of 1950Referring Jose Cai MD 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 Clinical History Stroke, Current smoker, COPD, Hep C HGB 15.0 HCT 43.1 % Contrast Medium: Bubbles. Amount - 20 ml Contrast Medium: Definity. Amount - 2 ml Height: 65 inches Weight: 83.01 kg (183 lbs) BSA: 1.9 m^2 BMI: 30.45 kg/m^2 HR: 68 bpm BP: 133/63 mmHg Summary IV saline contrast injection was negative for a PFO (patent foramen ovale) post Valsalva . The left ventricle is chamber size (by PSLAX dimension) is normal (male - LVIDd 4.2-5.8cm) . Normal LV wall thickness. All of the LV segments contract normally . Global LV systolic function normal . LVEF by Linares's method of disk assessment is normal (>60%) . The LVEF was measured using Linares's bi-plane method of disk . LV endocardium is adequately visualized with IV ultrasound enhancing agent. Grade 1 diastolic dysfunction (impaired relaxation and low-normal LA pressure). Normal (cardiac index 2-3 L/min/m2) cardiac output state at rest is noted. Unable to estimate peak systolic PA pressure; inadequate TR velocity signal. Previous Study No prior exam available for comparison. Signature Findings Technical Quality: Technically difficult exam. Left Ventricle The left ventricle is chamber size (by PSLAX di mension) is normal (male - LVIDd 4.2-5.8cm) . No rmal LV wall thickness. All of the LV segments co ntract normally . Global LV systolic function no rmal . LVEF by Linares's method of disk as sessment is normal (>60%) . The LVEF was measured us ing Linares's bi-plane method of disk . LV en docardium is adequately visualized with IV ul trasound enhancing agent. Grade 1 diastolic dy sfunction (impaired relaxation and low-normal LA pr essure). Normal (cardiac index 2-3 L/min/m2) ca rdiac output state at rest is noted. Left AtriumLA size is mildly enlarged (35-41 ml/m2) . Right VentricleRV chamber size is normal. Gl obal RV systolic function is low normal . Right Atrium RA cavity size is mildly enlarged . Atrial SeptumIV saline contrast injection was negative for a PFO (p atent foramen ovale) post Valsalva . Aortic Valve AoV is not well visualized. Mitral Valve Mild MV leaflet thickening. Mi [id number] mitral annular calcification. Tricuspid ValveTV is not well visualized. Un able to estimate peak systolic PA pressure; in adequate TR velocity signal. Pulmonic Valve PV is not well visualized. AortaAortic root size (SInus of Valsalva diameter) is no rmal . PericardiumNo significant pericardial effusion is visualized. IVC/SVC/PA/PV/PleuralThe estimated RA pressure by IVC dynamics appears to be 5-10mmHg . Chambers/Structures Left Atrium LA Volume: 66.07 ml LA Area: 21.36 cm^2 LA Vol. Index: 35 ml/m^2 Left Ventricle LVIDd: 5.05 cm LV Septum Diastolic: 1.04 cm LV PW Diastolic: 0.95 cm LVEDV Linares's:115.81 ml LVESV Linares's:42.34 ml LVEF Linares's: 63.4 %LVEDV I: 61 ml/m^2 LVESVI: 22 ml/m^2 LVOT Diameter: 2.04 cm Right Atrium RA Vol. (Sngl Plane): 74.37 ml Right Ventricle TAPSE: 1.5 cm Aorta Ao Root S of Carmela.: 3.27 cm Doppler/Quantitative Measurements Mitral Valve MV Peak E-Wave: 0.65 m/sMV Peak A-Wave: 0.96 m/s P1/2t: 76.4 msecE/ A Ratio: 0.68 Peak Gradient: 1.71 mmHg Deceleration Time: 271.1 msec MV Area (PHT): 2.88 cm^2 MV Michael. Peak: Tissue Doppler E' Lateral Velocity: 0.09 m/s E/E': 7.18 Aortic Valve Peak Velocity: 1.17 m/sMean Velocity: 0.8 m/s Peak Gradient: 5.47 mmHg Mean Gradient: 2.94 mmHg AV Area (continuity): 3.3 cm^2 AV VTI: 20.89 cm AV DVI: 1.01 LVOT Peak Velocity: 1.11 m/s Peak Gradient: 4.89 mmHg Mean Velocity: 0.75 m/s Mean Gradient: 2.51 mmHg LVOT Diameter: 2.04 cmLVOT VTI: 21.11 cm LVOT Area: 3.27 cm^2LVOT SV:68.96 ml LVOT CO: 4.69 l/min LVOT CI: 2.47 l/min/m^2 Procedure Note Interface, External Ris In - 01/04/2019 12:13 PM CDT Transthoracic Echocardiography Report (TTE) Demographics Patient Name MARCIO MCLAUGHLIN Date of Study 01/04/2019 Gender Male Visit Number [id number] Race Unknown Room Number 7512 Number Date of 1950 Referring Physician Guillermo Cai MD 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 Clinical History Stroke, Current smoker, COPD, Hep C HGB 15.0 HCT 43.1 % Contrast Medium: Bubbles. Amount - 20 ml Contrast Medium: Definity. Amount - 2 ml Height: 65 inches Weight: 83.01 kg (183 lbs) BSA: 1.9 m^2 BMI: 30.45 kg/m^2 HR: 68 bpm BP: 133/63 mmHg Summary IV saline contrast injection was negative for a PFO (patent foramen ovale) post Valsalva . The left ventricle is chamber size (by PSLAX dimension) is normal (male - LVIDd 4.2-5.8cm) . Normal LV wall thickness. All of the LV segments contract normally . Global LV systolic function normal . LVEF by Linares's method of disk assessment is normal (>60%) . The LVEF was measured using Linares's bi-plane method of disk . LV endocardium is adequately visualized with IV ultrasound enhancing agent. Grade 1 diastolic dysfunction (impaired relaxation and low-normal LA pressure). Normal (cardiac index 2-3 L/min/m2) cardiac output state at rest is noted. Unable to estimate peak systolic PA pressure; inadequate TR velocity signal. Previous Study No prior exam available for comparison. Signature Findings Technical Quality: Technically difficult exam. Left Ventricle The left ventricle is chamber size (by PSLAX dimension) is normal (male - LVIDd 4.2-5.8cm) . Normal LV wall thickness. All of the LV segments contract normally . Global LV systolic function normal . LVEF by Linares's method of disk assessment is normal (>60%) . The LVEF was measured using Linares's bi-plane method of disk . LV endocardium is adequately visualized with IV ultrasound enhancing agent. Grade 1 diastolic dysfunction (impaired relaxation and low-normal LA pressure). Normal (cardiac index 2-3 L/min/m2) cardiac output state at rest is noted. Left Atrium LA size is mildly enlarged (35-41 ml/m2) . Right Ventricle RV chamber size is normal. Global RV systolic function is low normal . Right Atrium RA cavity size is mildly enlarged . Atrial Septum IV saline contrast injection was negative for a PFO (patent foramen ovale) post Valsalva . Aortic Valve AoV is not well visualized. Mitral Valve Mild MV leaflet thickening. Oxlq-je-egmxixjg mitral annular calcification. Tricuspid Valve TV is not well visualized. Unable to estimate peak systolic PA pressure; inadequate TR velocity signal. Pulmonic Valve PV is not well visualized. Aorta Aortic root size (SInus of Valsalva diameter) is normal . Pericardium No significant pericardial effusion is visualized. IVC/SVC/PA/PV/Pleural The estimated RA pressure by IVC dynamics appears to be 5-10mmHg . Chambers/Structures Left Atrium LA Volume: 66.07 ml LA Area: 21.36 cm^2 LA Vol. Index: 35 ml/m^2 Left Ventricle LVIDd: 5.05 cm LV Septum Diastolic: 1.04 cm LV PW Diastolic: 0.95 cm LVEDV Linares's:115.81 ml LVESV Linares's:42.34 ml LVEF Linares's: 63.4 % LVEDVI: 61 ml/m^2 LVESVI: 22 ml/m^2 LVOT Diameter: 2.04 cm Right Atrium RA Vol. (Sngl Plane): 74.37 ml Right Ventricle TAPSE: 1.5 cm Aorta Ao Root S of Carmela.: 3.27 cm Doppler/Quantitative Measurements Mitral Valve MV Peak E-Wave: 0.65 m/s MV Peak A-Wave: 0.96 m/s P1/2t: 76.4 msec E/A Ratio: 0.68 Peak Gradient: 1.71 mmHg Deceleration Time: 271.1 msec MV Area (PHT): 2.88 cm^2 MV Michael. Peak: Tissue Doppler E' Lateral Velocity: 0.09 m/s E/E': 7.18 Aortic Valve Peak Velocity: 1.17 m/s Mean Velocity: 0.8 m/s Peak Gradient: 5.47 mmHg Mean Gradient: 2.94 mmHg AV Area (continuity): 3.3 cm^2 AV VTI: 20.89 cm AV DVI: 1.01 LVOT Peak Velocity: 1.11 m/s Peak Gradient: 4.89 mmHg Mean Velocity: 0.75 m/s Mean Gradient: 2.51 mmHg LVOT Diameter: 2.04 cm LVOT VTI: 21.11 cm LVOT Area: 3.27 cm^2 LVOT SV:68.96 ml LVOT CO: 4.69 l/min LVOT CI: 2.47 l/min/m^2 Performing Organization Address City/State/Zipcode Phone Number [facility] Phosphorus (01/04/2019 3:43 AM CDT) Phosphorus 3.2 2.3 - 4.7 mg/dL [facility] Specimen Blood Narrative Performed At Fasting [facility] Check Serum Phosphorus level 4 hours after IV phosphorus replacement. Performing Organization Address [facility] Servicescode Phone Number [address] [phone] [place] Fasting lipid panel (01/04/2019 3:43 AM CDT) Triglycerides 71 mg/dL [facility] Cholesterol 181 mg/dL [facility] HDL 43 mg/dL [facility] LDL Calculated 124 mg/dL [facility] Specimen Blood Narrative Performed At Triglyceride Reference Range: [facility] Low Risk <150 [id number] High Risk 200-499 Very High Risk>=500 Cholesterol Reference Range: Low Risk <200 [id number] High Risk>240 HDL Cholesterol Reference Range: Low Risk >=60 High Risk <40 LDL Cholesterol Reference Range: Optimal<100 Near [id number] [id number] Very High >=190 Fasting Check Serum Phosphorus level 4 hours after IV phosphorus replacement. Performing Organization Address City/[facility] Servicescode Phone Number [address] [address] C[place] TSH (01/03/2019 7:33 PM CDT) TSH 3.60 0.35 - 4.94 uIU/mL [facility] Specimen Blood Performing Organization Address City/[facility]/Zipcode Phone Number [facility] [address] [facility] Hemoglobin A1c (01/03/2019 7:33 PM CDT) Hemoglobin A1C 6.9 (H) 4.3 - 6.1 % [facility] Specimen Blood Performing Organization Address City/State/Zipcode Phone Number [address] [address] [place] Vitamin B12 (01/03/2019 7:33 PM CDT) Vitamin B12 804 213 - 816 pg/mL [facility] Specimen Blood Performing Organization Address City/[facility]/Zipcode Phone Number [address] [phone] CENTER after 02/14/2018 Insurance Payer Benefit Plan / Group Subscriber ID Type Phone Address [employer] - MEDICARE AARP/MEDICARE COMPLETE xxxxxxxxx [facility]GD CARE Advance Directives For more information, please contact:[address] [phone] Code Status Date Activated Date Inactivated Comments Full Code 01/03/2019 7:07 PM 01/08/2019 1:10 PM This code status was determined by: Patient
--- OUTSIDE RECORDS SUMMARY | 2019-02-15 19:00 | XMS REPORT ---
:1950 [facility] [address] [place] [address] Care Team Providers Name Role Phone JAY SANCHEZ Unavailable Unavailable Problems This patient has no known problems. Allergies, Adverse Reactions, Alerts This patient has no known allergies or adverse reactions. Medications This patient has no known medications. Results Test Description Test Time Test Comments Text Results Atomic Results Result Comments BASIC METABOLIC PANEL 2019-01-07 08:46:00 Test Item Value Reference Range Comments SODIUM (BEAKER) (test 129 meq/L 136-145 qyay=112) POTASSIUM (BEAKER) (test 4.8 meq/L 3.5-5.1 jdqc=982) CHLORIDE (BEAKER) (test 99 meq/L 98-107 ljvl=206) CO2 (BEAKER) (test tjij=826) 23 meq/L 22-29 BLOOD UREA NITROGEN (BEAKER) 11 mg/dL 7-21 (test yfae=228) CREATININE (BEAKER) (test 0.88 mg/dL 0.57-1.25 cgpt=860) GLUCOSE RANDOM (BEAKER) 105 mg/dL 70-105 (test jvvi=128) CALCIUM (BEAKER) (test 9.3 mg/dL 8.4-10.2 tioe=143) EGFR (BEAKER) (test 86 mL/min/1.73 sq m ESTIMATED GFR IS NOT xmzu=5885) ACCURATE CREATININE CLEARANCE IN PREDICTING GLOMERULAR FILTRATION RATE. ESTIMATED GFR IS NOT APPLICABLE FOR DIALYSIS PATIENTS. PROTHROMBIN [id number] 08:34:00 Test Item Value Reference Range Comments PROTIME (BEAKER) (test kjth=247) 13.0 seconds 11.9-14.2 INR (BEAKER) (test fdse=442) 1.0 <=5.9 Effective 12/16/2018: PT Reference Range ChangeNew: 11.9-14.2 Previous: 11.7- 14.7RECOMMENDED COUMADIN/WARFARIN INR THERAPY RANGESSTANDARD DOSE: 2.0-3.0 Includes: PROPHYLAXIS for venous thrombosis, systemic embolization; TREATMENT for venous thrombosis and/or pulmonary embolus.HIGH RISK: Target INR is2.5-3.5 for patients wiht mechanical heart valves.CBC W/PLT COUNT & AUTO [id number] 08:15:00 Test Item Value Reference Range Comments WHITE BLOOD CELL COUNT (BEAKER) (test dizr=649) 9.1 K/ L 3.5-10.5 RED BLOOD CELL COUNT (BEAKER) (test pnmy=934) 5.24 M/ L 4.63-6.08 HEMOGLOBIN (BEAKER) (test pxsv=943) 15.4 GM/DL 13.7-17.5 HEMATOCRIT (BEAKER) (test pzmm=972) 44.4 % 40.1-51.0 MEAN CORPUSCULAR VOLUME (BEAKER) (test nsdn=455) 84.7 fL 79.0-92.2 MEAN CORPUSCULAR HEMOGLOBIN (BEAKER) (test 29.4 pg 25.7-32.2 dchb=927) MEAN CORPUSCULAR HEMOGLOBIN CONC (BEAKER) (test 34.7 GM/DL 32.3-36.5 rcyl=843) RED CELL DISTRIBUTION WIDTH (BEAKER) (test 13.3 % 11.6-14.4 zdip=886) PLATELET COUNT (BEAKER) (test zjai=503) 229 K/CU MM 150-450 MEAN PLATELET VOLUME (BEAKER) (test dbnt=758) 9.5 fL 9.4-12.4 NUCLEATED RED BLOOD CELLS (BEAKER) (test 0 /100 WBC 0-0 mygj=055) NEUTROPHILS RELATIVE PERCENT (BEAKER) (test 66 % fbmc=166) LYMPHOCYTES RELATIVE PERCENT (BEAKER) (test 21 % qefu=266) MONOCYTES RELATIVE PERCENT (BEAKER) (test 10 % ihfm=758) EOSINOPHILS RELATIVE PERCENT (BEAKER) (test 2 % wzes=903) BASOPHILS RELATIVE PERCENT (BEAKER) (test 1 % uzac=767) NEUTROPHILS ABSOLUTE COUNT (BEAKER) (test 6.00 K/ L 1.78-5.38 ohhl=899) LYMPHOCYTES ABSOLUTE COUNT (BEAKER) (test 1.86 K/ L 1.32-3.57 aoyq=374) MONOCYTES ABSOLUTE COUNT (BEAKER) (test 0.91 K/ L 0.30-0.82 igum=876) EOSINOPHILS ABSOLUTE COUNT (BEAKER) (test 0.18 K/ L 0.04-0.54 zzhy=631) BASOPHILS ABSOLUTE COUNT (BEAKER) (test 0.08 K/ L 0.01-0.08 rdek=410) IMMATURE GRANULOCYTES-RELATIVE PERCENT (BEAKER) 0 % 0-1 (test uzvs=3023) MYOCARD IMAGING, MULTI, PHARM, [id number] 16:31:00FINAL REPORT PROCEDURE: MYOCARDIAL PERFUSION SPECT IMAGING (Rest/Stress)CPT CODE : 00575 INDICATION: ventricular arrhythmia CARDIOVASCULAR PROFILE:CAD History: NoneRisk Factors: Diabetes, tobacco use, obesityBMI: 30.5Medications: Aspirin, atorvastatin, Lovenox STRESS PROTOCOL:Pharmacologic stress was achieved with a 10-second intravenous infusion of regadenoson 0.4 mg. The radiopharmaceutical was administered 30 seconds after the start of the regadenoson infusion. IMAGING PROTOCOL:10.8 mCi of Tc-99m sestamibi was injected intravenously at rest , and non-gated SPECT images were obtained. Then, 30.6 mCi of Tc-99m sestamibi was injected intravenously at peak stress, and gated SPECT images were obtained. Image quality is fair. REST FINDINGS:HR: 67/minBP: 151/78 mmHgPrelim. EKG: Normal sinus rhythm.Perfusion: Decreased uptake in the inferior wall of the LV. STRESS FINDINGS:HR: 83/min (55% of MPHR)BP: 168/98 mmHgPrelim. EKG: No ischemic changes.Symptoms: Dyspnea and abdominal discomfort (treatment not required).Perfusion: Decreased uptake in the inferior wall of the LV.Wall Motion : Mild inferior hypokinesis. (LVEF 48%). IMPRESSION:1. Abnormal study.2. Abnormal myocardial perfusion. There is a moderate size, moderate severity, fixed perfusion abnormality in the inferior wall ofthe LV.3. Mildly decreased LVEF at rest.4. Normal extracardiac tracer distribution.5. There is no prior study for comparison. Signed: Roselia Hope MDReport Verified Date/Time: 2018 16:31:33 Reading Location: [address] Reading Room [facility] METABOLIC [id number] 05:10:00 Test Item Value Reference Range Comments SODIUM (BEAKER) (test 128 meq/L 136-145 clwd=859) POTASSIUM (BEAKER) (test 4.6 meq/L 3.5-5.1 itgi=693) CHLORIDE (BEAKER) (test 99 meq/L 98-107 gebb=621) CO2 (BEAKER) (test 22 meq/L 22-29 nzij=641) BLOOD UREA NITROGEN 14 mg/dL 7-21 (BEAKER) (test dldd=027) CREATININE (BEAKER) (test 0.88 mg/dL 0.57-1.25 efen=503) GLUCOSE RANDOM (BEAKER) 147 mg/dL 70-105 (test bfad=727) CALCIUM (BEAKER) (test 8.9 mg/dL 8.4-10.2 iqli=710) EGFR (BEAKER) (test 86 mL/min/1.73 sq m ESTIMATED GFR IS NOT mtgk=6950) ACCURATE CREATININE CLEARANCE IN PREDICTING GLOMERULAR FILTRATION RATE. ESTIMATED GFR IS NOT APPLICABLE FOR DIALYSIS PATIENTS. CBC W/PLT COUNT & AUTO [id number] 04:44:00 Test Item Value Reference Range Comments WHITE BLOOD CELL COUNT (BEAKER) (test bcmy=132) 10.0 K/ L 3.5-10.5 RED BLOOD CELL COUNT (BEAKER) (test avgp=363) 4.89 M/ L 4.63-6.08 HEMOGLOBIN (BEAKER) (test uuxp=311) 14.3 GM/DL 13.7-17.5 HEMATOCRIT (BEAKER) (test quvj=747) 41.9 % 40.1-51.0 MEAN CORPUSCULAR VOLUME (BEAKER) (test tfmf=264) 85.7 fL 79.0-92.2 MEAN CORPUSCULAR HEMOGLOBIN (BEAKER) (test 29.2 pg 25.7-32.2 kwmy=454) MEAN CORPUSCULAR HEMOGLOBIN CONC (BEAKER) (test 34.1 GM/DL 32.3-36.5 xlzn=112) RED CELL DISTRIBUTION WIDTH (BEAKER) (test 13.6 % 11.6-14.4 xejj=388) PLATELET COUNT (BEAKER) (test qsft=970) 215 K/CU MM 150-450 MEAN PLATELET VOLUME (BEAKER) (test oovb=367) 10.1 fL 9.4-12.4 NUCLEATED RED BLOOD CELLS (BEAKER) (test 0 /100 WBC 0-0 psfy=223) NEUTROPHILS RELATIVE PERCENT (BEAKER) (test 66 % zmzv=219) LYMPHOCYTES RELATIVE PERCENT (BEAKER) (test 21 % vids=955) MONOCYTES RELATIVE PERCENT (BEAKER) (test 10 % nfbx=871) EOSINOPHILS RELATIVE PERCENT (BEAKER) (test 2 % roov=619) BASOPHILS RELATIVE PERCENT (BEAKER) (test 1 % tjxa=020) NEUTROPHILS ABSOLUTE COUNT (BEAKER) (test 6.62 K/ L 1.78-5.38 ahbh=691) LYMPHOCYTES ABSOLUTE COUNT (BEAKER) (test 2.10 K/ L 1.32-3.57 ghsm=382) MONOCYTES ABSOLUTE COUNT (BEAKER) (test 0.99 K/ L 0.30-0.82 dbgu=794) EOSINOPHILS ABSOLUTE COUNT (BEAKER) (test 0.16 K/ L 0.04-0.54 oiyi=290) BASOPHILS ABSOLUTE COUNT (BEAKER) (test 0.08 K/ L 0.01-0.08 cefj=312) IMMATURE GRANULOCYTES-RELATIVE PERCENT (BEAKER) 0 % 0-1 (test gxjb=6605) BASIC METABOLIC [id number] 04:14:00 Test Item Value Reference Range Comments SODIUM (BEAKER) (test 127 meq/L 136-145 auhx=818) POTASSIUM (BEAKER) (test 5.1 meq/L 3.5-5.1 Specimen slightly cuur=026) hemolyzed CHLORIDE (BEAKER) (test 97 meq/L 98-107 limo=549) CO2 (BEAKER) (test 23 meq/L 22-29 fhwq=577) BLOOD UREA NITROGEN 16 mg/dL 7-21 (BEAKER) (test wcmo=320) CREATININE (BEAKER) (test 0.84 mg/dL 0.57-1.25 Specimen slightly kxne=860) hemolyzed GLUCOSE RANDOM (BEAKER) 106 mg/dL 70-105 (test nghe=658) CALCIUM (BEAKER) (test 8.9 mg/dL 8.4-10.2 zycv=306) EGFR (BEAKER) (test 90 mL/min/1.73 sq m ESTIMATED GFR IS NOT ztjc=1756) ACCURATE CREATININE CLEARANCE IN PREDICTING GLOMERULAR FILTRATION RATE. ESTIMATED GFR IS NOT APPLICABLE FOR DIALYSIS PATIENTS. CBC W/PLT COUNT & AUTO [id number] 03:52:00 Test Item Value Reference Range Comments WHITE BLOOD CELL COUNT (BEAKER) (test kazq=259) 12.5 K/ L 3.5-10.5 RED BLOOD CELL COUNT (BEAKER) (test xddg=670) 5.13 M/ L 4.63-6.08 HEMOGLOBIN (BEAKER) (test kskr=108) 15.1 GM/DL 13.7-17.5 HEMATOCRIT (BEAKER) (test fbcx=738) 43.5 % 40.1-51.0 MEAN CORPUSCULAR VOLUME (BEAKER) (test wcnw=200) 84.8 fL 79.0-92.2 MEAN CORPUSCULAR HEMOGLOBIN (BEAKER) (test 29.4 pg 25.7-32.2 hqau=046) MEAN CORPUSCULAR HEMOGLOBIN CONC (BEAKER) (test 34.7 GM/DL 32.3-36.5 yyjo=543) RED CELL DISTRIBUTION WIDTH (BEAKER) (test 13.7 % 11.6-14.4 vbse=360) PLATELET COUNT (BEAKER) (test afzl=888) 214 K/CU MM 150-450 MEAN PLATELET VOLUME (BEAKER) (test emfl=704) 10.1 fL 9.4-12.4 NUCLEATED RED BLOOD CELLS (BEAKER) (test 0 /100 WBC 0-0 zyjj=603) NEUTROPHILS RELATIVE PERCENT (BEAKER) (test 69 % hgle=107) LYMPHOCYTES RELATIVE PERCENT (BEAKER) (test 19 % deej=655) MONOCYTES RELATIVE PERCENT (BEAKER) (test 10 % ymru=291) EOSINOPHILS RELATIVE PERCENT (BEAKER) (test 1 % oeuv=909) BASOPHILS RELATIVE PERCENT (BEAKER) (test 1 % naji=895) NEUTROPHILS ABSOLUTE COUNT (BEAKER) (test 8.58 K/ L 1.78-5.38 fgoq=343) LYMPHOCYTES ABSOLUTE COUNT (BEAKER) (test 2.32 K/ L 1.32-3.57 mini=615) MONOCYTES ABSOLUTE COUNT (BEAKER) (test 1.27 K/ L 0.30-0.82 orsb=159) EOSINOPHILS ABSOLUTE COUNT (BEAKER) (test 0.17 K/ L 0.04-0.54 twjh=765) BASOPHILS ABSOLUTE COUNT (BEAKER) (test 0.08 K/ L 0.01-0.08 ukme=981) IMMATURE GRANULOCYTES-RELATIVE PERCENT (BEAKER) 0 % 0-1 (test gtka=0918) CT, CHEST, WITH [id number] 22:53:00FINAL REPORT TECHNIQUE: CT of the chest, abdomen, and pelvis WITH intravenouscontrast and WITHOUT oral contrast. Dose modulation, iterative reconstruction, and/or weight- based adjustment of the mA/kV was utilized to reduce the radiation dose to as low as reasonably achievable. INDICATION: 68-year-old man with COPD and hepatitis C. COMPARISON: None. FINDINGS: LINES/TUBES: None. LUNGS AND AIRWAYS: Central airways are patent. Mild paraseptal emphysema. Trace mucus/debris in theleft mainstem bronchus. 6 mm subpleural noncalcified nodule in the left upper lobe (axial lung window series image 14).PLEURA: The pleural spaces are clear.HEART AND MEDIASTINUM: The visualized thyroidgland is normal. No significant mediastinal, hilar, or [...] characterize. Gallbladder is unremarkable. No biliary ductal dilatation.SPLEEN: No splenomegaly.PANCREAS: No focal masses or ductal dilatation. Tiny subcentimeter calcification in the pancreatic neck. ADRENALS: 1.3 x 1.1 cm homogeneous right adrenal nodule. 1.5 x 1.1 cm homogeneous nodule in the medial limb of the left adrenal gland.KIDNEYS/URETERS: No hydronephrosis , stones, or solid mass lesions.PELVIC ORGANS/BLADDER: Enlarged prostate. The contents of the bladder are slightly hyperdense. PERITONEUM/RETROPERITONEUM: No free air or fluid.LYMPH NODES: Mildly prominent 1.1 cm periportal lymph node is nonspecific and likely reactive.VESSELS: Atherosclerotic vascular calcifications in theabdominal aorta and bilateral iliac arteries without aneurysm. Retroaortic left renal vein. GI TRACT: No distention or wall thickening. Normal appendix. BONES AND SOFT TISSUES: Degenerative changes of the visualized spine. Orthopedic hardware in both scapulas. Fat-containing left inguinal/femoral hernia. Tiny fat-containing umbilical hernia. IMPRESSION: Chest CT:*Mild emphysema.*6 mm pulmonary nodule in the left upper lobe. Follow- up chest CT is recommended in 6 months to reassess this pulmonary nodule. Abdomen and pelvis CT:*No overt cirrhosis or definite hepatic steatosis. Suboptimal evaluation for hepatocellular carcinoma on this single-phase contrast -enhanced CT. Hepatic cysts with a subcentimeter hypodensity that is too small to characterize. Abdomen MRI or CT with and without intravenous contrast (liver protocol) may be obtained for further evaluation.*Bilateral homogeneous adrenal nodules, probable adenomas. These nodules may also be further assessed on the aforementioned abdomen MRI orCT.*Slightly hyperdense contents of the bladder, which may be seen with concentrated or debris-containing urine. This finding may be correlated with urinalysis. Signed: Vipin Solo MDReport Verified Date/Time: 01/04/2019 22:53:46 Reading Location: [address] Consult Reading Room CT, [id number] 22:53:00FINAL REPORT TECHNIQUE: CT of the chest, abdomen, and pelvis WITH intravenouscontrast and WITHOUT oral contrast. Dose modulation, iterative reconstruction, and/or weight-based adjustment of the mA/kV was utilized to reduce the radiation dose to as low as reasonably achievable. INDICATION: 68-year-old man with COPD and hepatitis C. COMPARISON: None. FINDINGS: LINES/TUBES: None. LUNGS AND AIRWAYS: Central airways are patent. Mild paraseptal emphysema. Trace mucus/debris in theleft mainstem bronchus. 6 mm subpleural noncalcified nodule in the left upper lobe ( axial lung window series image 14).PLEURA: The pleural spaces are clear.HEART AND MEDIASTINUM: The visualized thyroidgland is normal. No significant mediastinal, hilar, or [...] characterize. Gallbladder is unremarkable. No biliary ductal dilatation.SPLEEN: No splenomegaly.PANCREAS: No focal masses or ductal dilatation. Tiny subcentimeter calcification in the pancreatic neck. ADRENALS: 1.3 x 1.1 cm homogeneous right adrenal nodule. 1.5 x 1.1 cm homogeneous nodule in the medial limb of the left adrenal gland.KIDNEYS/URETERS: No hydronephrosis, stones, or solid mass lesions.PELVIC ORGANS/BLADDER: Enlarged prostate. The contents of the bladder are slightly hyperdense. PERITONEUM/RETROPERITONEUM: No free air or fluid.LYMPH NODES: Mildly prominent 1.1 cm periportal lymph node is nonspecific and likely reactive.VESSELS: Atherosclerotic vascular calcifications in theabdominal aorta and bilateral iliac arteries without aneurysm. Retroaortic left renal vein. GI TRACT: No distention or wall thickening. Normal appendix. BONES AND SOFT TISSUES: Degenerative changes of the visualized spine. Orthopedic hardware in both scapulas. Fat-containing left inguinal/femoral hernia. Tiny fat-containing umbilical hernia. IMPRESSION: Chest CT:*Mild emphysema.*6 mm pulmonary nodule in the left upper lobe. Follow-up chest CT is recommended in 6 months to reassess this pulmonary nodule. Abdomen and pelvis CT :*No overt cirrhosis or definite hepatic steatosis. Suboptimal evaluation for hepatocellular carcinoma on this single-phase contrast-enhanced CT. Hepatic cysts with a subcentimeter hypodensity that is too small to characterize. Abdomen MRI or CT with and without intravenous contrast (liver protocol) may be obtained for further evaluation.*Bilateral homogeneous adrenal nodules, probable adenomas. These nodules may also be further assessed on the aforementioned abdomen MRI orCT.*Slightly hyperdense contents of the bladder, which may be seen with concentrated or debris-containing urine. This finding may be correlated with urinalysis. Signed: Vipin Solo MDReport Verified Date/Time: 01/04/2019 22:53:46 Reading Location: [address] Consult Reading Room MR, BRAIN, WITHOUT [id number] 19:00:00Reason for exam:->StrokeWhat is the patient's sedation requirement?->No SedationFINAL REPORT MR, BRAIN, WITHOUT CONTRAST INDICATION: StrokeStroke TECHNIQUE: Multiplanar, multisequence MR imaging of the brain without intravenous contrast. COMPARISON: None FINDINGS: There is no restricted diffusion. Scattered and confluent deep white matter changes are present bilaterally, compatible with leukoaraiosis. There is no mass effect or abnormal extra-axial fluid.The ventricles are normal in size and configuration. The larger intracranial vascular flow-voids arepreserved. Paranasal sinuses and mastoid air cells are clear. There is normal bone marrow signal intensity within the calvarium and skull base. IMPRESSION: Senescent intracranial changes without evidence for acute or recent stroke or hemorrhage. Signed: JR Macdonald Robert MDReport Verified Date/Time: 01/04/2019 19:00:21 Reading Location: [address] Neuro Reading Room HEPATIC FUNCTION [id number] 14:26:00 Test Item Value Reference Range Comments TOTAL PROTEIN (BEAKER) (test 7.1 gm/dL 6.0-8.3 Specimen slightly hemolyzed yqkn=561) ALBUMIN (BEAKER) (test 3.7 g/dL 3.5-5.0 Specimen slightly hemolyzed smvx=3113) BILIRUBIN TOTAL (BEAKER) (test 0.6 mg/dL 0.2-1.2 Specimen slightly hemolyzed uvea=419) BILIRUBIN DIRECT (BEAKER) (test 0.2 mg/dL 0.1-0.5 Specimen slightly hemolyzed vxst=065) ALKALINE PHOSPHATASE (BEAKER) 91 U/L 40-150 (test djvo=358) AST (SGOT) (BEAKER) (test 33 U/L 5-34 Specimen slightly hemolyzed ovtl=693) ALT (SGPT) (BEAKER) (test 64 U/L 6-55 Specimen slightly hemolyzed hjtb=018) [id number] 12:14:00 Test Item Value Reference Range Comments MAGNESIUM (BEAKER) (test 2.8 mg/dL 1.6-2.6 Specimen moderately hemolyzed duaw=139) HEMOGLOBIN [id number] 08:02:00 Test Item Value Reference Range Comments HEMOGLOBIN A1C (BEAKER) (test tzcm=362) 6.9 % 4.3-6.1 [id number] 04:43:00 Test Item Value Reference Range Comments PHOSPHORUS (BEAKER) (test ouxu=479) 3.2 mg/dL 2.3-4.7 FastingCheck Serum Phosphorus level 4 hours after IV phosphorus replacement.[id number] 04:43:00 Test Item Value Reference Range Comments MAGNESIUM (BEAKER) (test ovzw=920) 2.1 mg/dL 1.6-2.6 FastingCheck Serum Phosphorus level 4 hours after IV phosphorus replacement.BASIC METABOLIC [id number] 04:43:00 Test Item Value Reference Range Comments SODIUM (BEAKER) (test 129 meq/L 136-145 rppn=431) POTASSIUM (BEAKER) (test 4.7 meq/L 3.5-5.1 czhn=462) CHLORIDE (BEAKER) (test 100 meq/L 98-107 iotj=516) CO2 (BEAKER) (test 22 meq/L 22-29 qjec=784) BLOOD UREA NITROGEN 16 mg/dL 7-21 (BEAKER) (test wwii=900) CREATININE (BEAKER) (test 0.88 mg/dL 0.57-1.25 kwre=568) GLUCOSE RANDOM (BEAKER) 109 mg/dL 70-105 (test hnyu=585) CALCIUM (BEAKER) (test 8.7 mg/dL 8.4-10.2 ktbi=758) EGFR (BEAKER) (test 86 mL/min/1.73 sq m ESTIMATED GFR IS NOT orud=4949) ACCURATE CREATININE CLEARANCE IN PREDICTING GLOMERULAR FILTRATION RATE. ESTIMATED GFR IS NOT APPLICABLE FOR DIALYSIS PATIENTS. FastingCheck Serum Phosphorus level 4 hours after IV phosphorus replacement.LIPID [id number] 04:43:00 Test Item Value Reference Range Comments TRIGLYCERIDES (BEAKER) (test pwcf=000) 71 mg/dL CHOLESTEROL (BEAKER) (test bvkm=015) 181 mg/dL HDL CHOLESTEROL (BEAKER) (test riwb=089) 43 mg/dL LDL CHOLESTEROL CALCULATED (BEAKER) (test 124 mg/dL dqjh=884) Triglyceride Reference Range: Low Risk <150 Borderline 150- 199 High Risk 200-499 Very High Risk >=500Cholesterol Reference Range: Low Risk <200 Borderline 200-239 High Risk > 240HDL Cholesterol Reference Range: Low Risk >=60 High Risk <40LDL Cholesterol Reference Range: Optimal <100 Near Optimal 100-129 Borderline 130-159 High 160-189 Very High >=190 [facility] 4 hours after IV phosphorus replacement.CBC W/PLT COUNT & AUTO [id number] 04:10:00 Test Item Value Reference Range Comments WHITE BLOOD CELL COUNT (BEAKER) (test jgsp=152) 13.1 K/ L 3.5-10.5 RED BLOOD CELL COUNT (BEAKER) (test nbwi=016) 5.01 M/ L 4.63-6.08 HEMOGLOBIN (BEAKER) (test ngkl=123) 15.0 GM/DL 13.7-17.5 HEMATOCRIT (BEAKER) (test vuym=064) 43.1 % 40.1-51.0 MEAN CORPUSCULAR VOLUME (BEAKER) (test fbql=363) 86.0 fL 79.0-92.2 MEAN CORPUSCULAR HEMOGLOBIN (BEAKER) (test 29.9 pg 25.7-32.2 kbjo=473) MEAN CORPUSCULAR HEMOGLOBIN CONC (BEAKER) (test 34.8 GM/DL 32.3-36.5 xgqs=046) RED CELL DISTRIBUTION WIDTH (BEAKER) (test 13.8 % 11.6-14.4 kqcr=206) PLATELET COUNT (BEAKER) (test rskq=597) 209 K/CU MM 150-450 MEAN PLATELET VOLUME (BEAKER) (test ysoo=736) 10.1 fL 9.4-12.4 NUCLEATED RED BLOOD CELLS (BEAKER) (test 0 /100 WBC 0-0 urgs=913) NEUTROPHILS RELATIVE PERCENT (BEAKER) (test 73 % rfdu=798) LYMPHOCYTES RELATIVE PERCENT (BEAKER) (test 16 % qccj=053) MONOCYTES RELATIVE PERCENT (BEAKER) (test 9 % xdog=526) EOSINOPHILS RELATIVE PERCENT (BEAKER) (test 1 % fhso=074) BASOPHILS RELATIVE PERCENT (BEAKER) (test 1 % zzbo=279) NEUTROPHILS ABSOLUTE COUNT (BEAKER) (test 9.53 K/ L 1.78-5.38 gdor=441) LYMPHOCYTES ABSOLUTE COUNT (BEAKER) (test 2.13 K/ L 1.32-3.57 bqyq=646) MONOCYTES ABSOLUTE COUNT (BEAKER) (test 1.13 K/ L 0.30-0.82 ykap=672) EOSINOPHILS ABSOLUTE COUNT (BEAKER) (test 0.10 K/ L 0.04-0.54 dakx=431) BASOPHILS ABSOLUTE COUNT (BEAKER) (test 0.08 K/ L 0.01-0.08 srmq=572) IMMATURE GRANULOCYTES-RELATIVE PERCENT (BEAKER) 1 % 0-1 (test otfw=6539) [id number] 20:33:00 Test Item Value Reference Range Comments THYROID STIMULATING HORMONE (BEAKER) (test 3.60 uIU/mL 0.35-4.94 mvaw=295) VITAMIN [id number] 20:33:00 Test Item Value Reference Range Comments VITAMIN B12 (BEAKER) (test dncc=273) 804 pg/mL 213-816
[2019-02-15] MEDS ORDERED: KETOROLAC 30 MG/ML INJ ONE (20:31)
[2019-02-15] MEDS ORDERED: LORAZEPAM 1 MG TABLET ONE (20:31)
[2019-02-15 20:33] LABS: Absolute Lymphocytes (CBC) 2.3 K/uL (0.7-4.9); Hematocrit 42.9 % (39.6-49.0); Lymphocytes % 20.7 % (15.3-44.8); MPV 8.6 fL (7.6-11.3); RBC Red Blood Cell Count 4.95 M/uL (4.33-5.43)
[2019-02-15 20:34] LABS: Protime INR 1.03
[2019-02-15] MEDS ORDERED: ONDANSETRON 4 MG/2 ML VIAL ONE (20:34)
[2019-02-15 20:51] LABS: ALT/SGPT 67 U/L (12-78); AST/SGOT 31 U/L (15-37); Albumin 3.7 g/dL (3.4-5.0); Alkaline Phosphatase 164 U/L (45-117); BUN Blood Urea Nitrogen 15 mg/dL (7-18); Bicarbonate 28 mmol/L (21-32); Bilirubin Direct 0.2 mg/dL (0-0.2); Bilirubin Total 0.5 mg/dL (0.2-1.0); Glucose Level 129 mg/dL (74-106); Magnesium 2.6 mg/dL (1.8-2.4); NT PRO-BNP 111 pg/mL (<125); Potassium 4.2 mmol/L (3.5-5.1); Protein, Total 7.3 g/dL (6.4-8.2); Sodium Level 134 mmol/L (136-145); Troponin (Emerg Dept Use Only) < 0.02 ng/mL (0.0-0.045)
[2019-02-15] MEDS ORDERED: FUROSEMIDE 20 MG/ 2ML VIAL ONE (21:27)
--- NOTE | 2019-02-15 22:00 | RAD REPORT ---
EXAM DESCRIPTION: RAD - Chest Single View - 02/15/2019 9:08 pm CLINICAL HISTORY: CHEST PAIN Chest pain. COMPARISON: Chest Single View dated 01/03/2019 FINDINGS: Portable technique limits examination quality. The lungs are underinflated but grossly clear. The heart is normal in size. No displaced fractures. IMPRESSION: Underinflated lungs.
--- NOTE | 2019-02-15 22:34 | EDPHYS ---
Physician Documentation [facility] Name: Marcio Armas Age: 68 yrs Sex: Male : 1950 Arrival Date: 02/15/2019 Time: 19:00 Bed 28 Private MD: Roman Pineda ED Physician Mark Garner HPI: 02/16 02:43 This 68 yrs old Male presents to ER via Wheelchair with complaints of Anxiety.tw4 02:43 The patient has shortness of breath at rest. Onset: The symptoms/episode began/occurred tw4 today. Duration: The symptoms are continuous, and are unchanged since they started. The patient's shortness of breath has no apparent modifying factors. Associated signs and symptoms: The patient has no apparent associated signs or symptoms. Severity of symptoms: At their worst the symptoms were moderate in the emergency department the symptoms are unchanged. The patient has not experienced similar symptoms in the past. Historical: - Home Meds: 02/15 19:35 None [Active]; ea - PMHx: 19:35 COPD; Hepatitis C; ea - PSHx: 19:35 double hernia repair; shoulder repair; ea - Immunization history:: Adult Immunizations up to date. - Social history:: Smoking status: Patient/guardian denies using tobacco, but has a distant history of tobacco abuse. - Ebola Screening: : No symptoms or risks identified at this time. ROS: 02/16 02:43 Constitutional: Negative for fever, chills, and weight loss, Eyes: Negative for injury, tw4 pain, redness, and discharge, Cardiovascular: Negative for chest pain, palpitations, and edema, Respiratory: Negative for shortness of breath, cough, wheezing, and pleuritic chest pain, Abdomen/GI: Negative for abdominal pain, nausea, vomiting, diarrhea, and constipation, Back: Negative for injury and pain, MS/Extremity: Negative for injury and deformity, Skin: Negative for injury, rash, and discoloration. Exam: 02:43 Constitutional: This is a well developed, well nourished patient who is awake, alert, tw4 and in no acute distress. Head/Face: Normocephalic, atraumatic. Chest/axilla: Normal chest wall appearance and motion. Nontender with no deformity. No lesions are appreciated. Cardiovascular: Regular rate and rhythm with a normal S1 and S2. No gallops, murmurs, or rubs. Normal PMI, no JVD. No pulse deficits. Respiratory: Lungs have equal breath sounds bilaterally, clear to auscultation and percussion. No rales, rhonchi or wheezes noted. No increased work of breathing, no retractions or nasal flaring. 02:43 Back: No spinal tenderness. No costovertebral tenderness. Full range of motion. MS/ Extremity: Pulses equal, no cyanosis. Neurovascular intact. Full, normal range of motion. Neuro: Awake and alert, GCS 15, oriented to person, place, time, and situation. Cranial nerves II-XII grossly intact. Motor strength 5/5 in all extremities. Sensory grossly intact. Cerebellar exam normal. Normal gait. 02:43 Abdomen/GI: Inspection: distension, that is mild, Bowel sounds: normal, Palpation: Vital Signs: 02/15 19:35 BP 131 / 65; Pulse 72; Resp 18; Temp 98; Pulse Ox 99% on R/A; Weight 81.65 kg; Height 5 ea ft. 5 in. (165.10 cm); 20:00 BP 119 / 60; Pulse 66; Resp 18; Pulse Ox 97% on R/A; ea 21:00 BP 116 / 63; Pulse 58; Resp 18; Pulse Ox 98% on R/A; ea 22:00 BP 121 / 64; Pulse 61; Resp 18; Pulse Ox 98% ; ea 22:58 BP 121 / 64; Pulse 70; Resp 18; Pulse Ox 100% ; ea 19:35 Body Mass Index 29.95 (81.65 kg, 165.10 cm) MDM: 19:32 Patient medically screened. tw4 02/16 02:43 Data reviewed: vital signs, nurses notes. Data interpreted: Pulse oximetry: tw4 Interpretation: normal. Counseling: I had a detailed discussion with the patient and/or guardian regarding: the historical points, exam findings, and any diagnostic results supporting the discharge/admit diagnosis, lab results, radiology results. 02/15 20:09 Order name: Basic Metabolic Panel; Complete Time: 21:41 tw4 02/15 21:41 Interpretation: Normal except: NA 134; GLUC 129; GFR 85. tw4 02/15 20:09 Order name: CBC with Diff; Complete Time: 21:41 tw4 29 21:41 Interpretation: Normal except: WBC 11.0. 02/15 20:09 Order name: LFT's; Complete Time: 21:41 02/15 21:41 Interpretation: Normal except: ALK 164; GLOB 3.6; A/G 1.0. 02/15 20:09 Order name: Magnesium; Complete Time: 21:41 02/15 21:41 Interpretation: MG 2.6. 02/15 20:09 Order name: NT PRO-BNP; Complete Time: 22:32 02/15 20:09 Order name: PT-INR; Complete Time: 22:32 02/15 20:09 Order name: Troponin (emerg Dept Use Only); Complete Time: 22:32 02/15 20:09 Order name: XRAY Chest (1 view); Complete Time: 22:32 02/15 20:09 Order name: EKG; Complete Time: 20:13 02/15 20:09 Order name: Cardiac monitoring; Complete Time: 20:24 02/15 20:09 Order name: EKG - Nurse/Tech; Complete Time: 20:24 02/15 20:09 Order name: IV Saline Lock; Complete Time: 20:23 02/15 20:09 Order name: Labs collected and sent; Complete Time: 20:23 02/15 20:09 Order name: O2 Per Protocol; Complete Time: 20:23 02/15 20:09 Order name: O2 Sat Monitoring; Complete Time: 20:23 Administered Medications: 02/15 20:18 Drug: Ativan 1 mg Route: PO; rr5 22:50 Follow up: Response: No adverse reaction; Marked relief of symptoms ea 20:20 Drug: Zofran 4 mg Route: IVP; Site: left forearm; rr5 21:00 Follow up: Response: No adverse reaction; Marked relief of symptoms ea 20:22 Drug: TORadol 15 mg Route: IVP; Site: left forearm; rr5 21:00 Follow up: Response: No adverse reaction ea 21:23 Drug: Lasix 20 mg Route: IVP; Site: left antecubital; ea 22:00 Follow up: Response: No adverse reaction ea Disposition: 02/15/19 22:33 Discharged to Home. Impression: Dyspnea, unspecified. - Condition is Stable. - Discharge Instructions: Shortness of Breath, Generalized Anxiety Disorder. - Prescriptions for Ativan 0.5 mg Oral Tablet - take 1 tablet by ORAL route every 8 hours As needed; 10 tablet. - Medication Reconciliation Form, Thank You Letter, Antibiotic Education, Prescription Opioid Use form. - Follow up: Roman Pineda MD; When: Upon discharge from the Emergency Department; Reason: If symptoms return, Recheck today's complaints, Continuance of care. - Problem is an ongoing problem. - Symptoms have improved. Signatures: Dispatcher [employer] EDMS Jenny Melo RN RN Mark Wilson MD MD tw4 Blaine Medel RN RN rr5 Corrections: (The following items were deleted from the chart) 23:02 22:33 02/15/2019 22:33 Discharged to Home. Impression: Dyspnea, unspecified. Condition ea is Stable. Forms are Medication Reconciliation Form, Thank You Letter, Antibiotic Education, Prescription Opioid Use. Follow up: Roman Pineda; When: Upon discharge from the Emergency Department; Reason: If symptoms return, Recheck today's complaints, Continuance of care. Problem is an ongoing problem. Symptoms have improved. tw4
--- NOTE | 2019-02-15 22:34 | ER ---
Nurse's Notes [facility] Name: Marcio Armas Age: 68 yrs Sex: Male : 1950 Arrival Date: 02/15/2019 Time: 19:00 Bed 28 Private MD: Roman Pineda Diagnosis: Dyspnea, unspecified Presentation: 02/15 19:35 Presenting complaint: Patient states: Patient reports he has been feeling short of ea breath, is having abdominal tightness and nausea. Reports he was seen yesterday at [facility] and was treated with diuretics and a breathing treatment, states " it helped for a little while but symptoms came right back. Transition of care: patient was not received from another setting of care. Onset of symptoms was February 15, 2019. Risk Assessment: Do you want to hurt yourself or someone else? Patient reports no desire to harm self or others. Initial Sepsis Screen: Does the patient meet any 2 criteria? No. Patient's initial sepsis screen is negative. Does the patient have a suspected source of infection? No. Patient's initial sepsis screen is negative. Care prior to arrival: None. 19:35 Method Of Arrival: Wheelchair ea 19:35 Acuity: ANA 3 ea Triage Assessment: 19:37 General: Appears uncomfortable, Behavior is appropriate for age. Pain: Complains of ea pain in abdomen. Historical: - Home Meds: 19:35 None [Active]; ea - PMHx: 19:35 COPD; Hepatitis C; ea - PSHx: 19:35 double hernia repair; shoulder repair; ea - Immunization history:: Adult Immunizations up to date. - Social history:: Smoking status: Patient/guardian denies using tobacco, but has a distant history of tobacco abuse. - Ebola Screening: : No symptoms or risks identified at this time. Screenin:33 Abuse screen: Denies threats or abuse. Nutritional screening: No deficits noted. ea Tuberculosis screening: No symptoms or risk factors identified. Fall Risk None identified. Assessment: 19:47 General: Appears in no apparent distress. comfortable, Behavior is cooperative, aj anxious. Pain: Denies pain. Neuro: Level of Consciousness is awake, alert, obeys commands, Oriented to person, place, time, situation, Appropriate for age. Respiratory: Airway is patent Respiratory effort is even, unlabored, Respiratory pattern is regular, symmetrical. GI: Abdomen is round noted to have ascites. Derm: Skin is intact, is healthy with good turgor, Skin is pink, warm \\T\\ dry. normal. 20:30 Reassessment: Patient and/or family updated on plan of care and expected duration. Pain ea level reassessed. Patient is alert, oriented x 3, equal unlabored respirations, skin warm/dry/pink. 21:55 Reassessment: Patient and/or family updated on plan of care and expected duration. Pain ea level reassessed. Patient is alert, oriented x 3, equal unlabored respirations, skin warm/dry/pink. 22:58 Reassessment: Patient and/or family updated on plan of care and expected duration. Pain ea level reassessed. Patient is alert, oriented x 3, equal unlabored respirations, skin warm/dry/pink. Discharge instruction given to patient and family, verbalized the understanding of instruction. No s/s of pain or discomfort noted at this time. Pt left ED via wheelchair per family, pt tolerating well. Vital Signs: 19:35 BP 131 / 65; Pulse 72; Resp 18; Temp 98; Pulse Ox 99% on R/A; Weight 81.65 kg; Height 5 ea ft. 5 in. (165.10 cm); 20:00 BP 119 / 60; Pulse 66; Resp 18; Pulse Ox 97% on R/A; ea 21:00 BP 116 / 63; Pulse 58; Resp 18; Pulse Ox 98% on R/A; ea 22:00 BP 121 / 64; Pulse 61; Resp 18; Pulse Ox 98% ; ea 22:58 BP 121 / 64; Pulse 70; Resp 18; Pulse Ox 100% ; ea 19:35 Body Mass Index 29.95 (81.65 kg, 165.10 cm) ea ED Course: 02/14 23:50 IV discontinued, intact, bleeding controlled, No redness/swelling at site. Pressure ea dressing applied. 02/15 19:00 Patient arrived in ED. dl4 19:00 Roman Pineda MD is Private Physician. dl4 19:31 Mark Garner MD is Attending Physician. tw4 19:33 Arm band placed on right wrist. Patient placed in an exam room, on a stretcher, on ea pulse oximetry. 19:37 Triage completed. ea 19:37 Patient has correct armband on for positive identification. Placed in gown. Bed in low ea position. Call light in reach. 20:02 Jenny Melo, RN is Primary Nurse. ea 20:20 Inserted saline lock: 20 gauge in left forearm, using aseptic technique. Blood rr5 collected. 21:11 XRAY Chest (1 view) In Process Unspecified. EDMS 22:33 Roman Pineda MD is Referral Physician. tw4 23:00 No provider procedures requiring assistance completed. ea Administered Medications: 20:18 Drug: Ativan 1 mg Route: PO; rr5 22:50 Follow up: Response: No adverse reaction; Marked relief of symptoms ea 20:20 Drug: Zofran 4 mg Route: IVP; Site: left forearm; rr5 21:00 Follow up: Response: No adverse reaction; Marked relief of symptoms ea 20:22 Drug: TORadol 15 mg Route: IVP; Site: left forearm; rr5 21:00 Follow up: Response: No adverse reaction ea 21:23 Drug: Lasix 20 mg Route: IVP; Site: left antecubital; ea 22:00 Follow up: Response: No adverse reaction ea Outcome: 22:33 Discharge ordered by MD. tw4 23:00 Discharged to home via wheelchair, with family. ea 23:00 Condition: stable 23:00 Discharge instructions given to patient, Instructed on discharge instructions, follow up and referral plans. medication usage, Demonstrated understanding of instructions, follow-up care, medications, Prescriptions given X 1. 23:02 Patient left the ED. ea Signatures: Dispatcher [employer] EDMI Sydni Luis RN RN aj Antunez, Elena, RN Mark Michelle ea, MD MD tw4 Blaine Medel RN RN rr5 Luna, David dl4
--- NOTE | 2019-02-16 13:37 | EKG ---
Test Date: 2019-02-15 Test Time: 20:23:07 Head Golf Coach: YOLANDA MEASUREMENT RESULTS: Intervals: Rate: 64 AL: 150 QRSD: 92 QT: 422 QTc: 435 Wood: P: 35 AL: 150 QRS: 34 T: 67 INTERPRETIVE STATEMENTS: Normal sinus rhythm Nonspecific ST and T wave abnormality Abnormal ECG Compared to ECG 01/03/2019 15:13:58 No significant changes Electronically Signed On 02-16-19 13:34:16 CDT by Wood Reed
== END 2019-02-15 23:02 | disposition home or self-care (01) ==
LOC: ER 18:56
DX: R06.00 Dyspnea, unspecified (principal); F41.9 Anxiety disorder, unspecified; J44.9 Chronic obstructive pulmonary disease, unspecified
CPT/HCPCS: 93005; 85025; 80048; 36415; 83735; 85610; 80076; 84484; 83880; 71045; J1940; J2405; 96374; 96375; 99284

== ENCOUNTER 2019-02-22 00:34 | Observation (INO) | payer MEDICARE ==
--- OUTSIDE RECORDS SUMMARY | 2019-02-22 00:37 | XMS REPORT | Clinical Summary ---
:1950 Author Organization [facility] Address [address] [place] [address] Care Team Providers Name Role Phone Unavailable [...] stress test; Adan Coronary artery disease involving [place] coronary artery of [place] heart without angina pectoris Farzaneh Holliday MD 01/03/2019 Travel after 02/21/2018 Social History Tobacco Use Types Packs/Day Years [...] 400 ms QTC Calculation(Bazett) 412 ms P [place] 49 degrees R [place] 47 degrees T [place] 61 degrees Normal sinus rhythm Normal ECG [...] 388 ms QTC Calculation(Bazett) 403 ms P [place] 29 degrees R [place] 25 degrees T [place] 52 degrees Normal sinus rhythm Normal ECG [...] A1C Routine 01/03/2019 7:33 PM CDT after 02/21/2018 Results EKG-SCANNED (01/12/2019 6:40 AM CDT) Narrative Performed At CARDIAC CATH REPORT - SCAN (01/12/2019 6:40 AM CDT) Narrative Performed At RHYTHM STRIP - SCAN (01/12/2019 6:40 AM CDT) Narrative Performed At CBC with platelet count + automated diff (01/07/2019 8:06 AM CDT)Only the most recent of4 resultswithin the time period is included. WBC 9.1 3.5 - 10.5 K/L [facility] RBC 5.24 4.63 - 6.08 M/L [facility] Hemoglobin 15.4 13.7 - 17.5 GM/DL [facility] Hematocrit 44.4 40.1 - 51.0 % [facility] MCV 84.7 79.0 - 92.[address] [facility] MCH 29.4 25.7 - 32.[address] [facility] MCHC 34.7 32.3 - 36.5 GM/DL [facility] RDW 13.3 11.6 - 14.4 % [facility] Platelets 229 150 - 450 K/CU MM [facility] MPV 9.5 9.4 - 12.[address] [facility] nRBC 0 0 - 0 /[address] [facility] % Neutros 66 % [facility] % Lymphs 21 % [facility] % Monos 10 % [facility] % Eos 2 % [facility] % Baso 1 % [facility] # Neutros 6.00 (H) 1.78 - 5.38 K/L [facility] # Lymphs 1.86 1.32 - 3.57 K/L [facility] # Monos 0.91 (H) 0.30 - 0.82 K/L [facility] # Eos 0.18 0.04 - 0.54 K/L [facility] # Baso 0.08 0.01 - 0.08 K/L [facility] Immature Granulocytes-Relative 0 0 - 1 % [facility] Specimen Blood Performing Organization Address City/[facility]/Zipcode Phone Number [address] [address] [phone] CENTER Prothrombin time/INR (01/07/2019 8:06 AM CDT) Protime 13.0 11.9 - 14.[address] [facility] INR 1.0 <=5.9 [facility] Specimen Blood Narrative Performed At Effective 12/16/2018: PT Reference Range [facility] Change New: 11.9-14.2Previous: 11.7-14.7 RECOMMENDED COUMADIN/WARFARIN INR THERAPY RANGES STANDARD DOSE: 2.0-3.0Includes: PROPHYLAXIS for venous thrombosis, systemic embolization; TREATMENT for venous thrombosis and/or pulmonary embolus. HIGH RISK: Target INR is 2.5-3.5 for patients wiht mechanical heart valves. Performing Organization Address City/[facility] Cent[facility]ode Phone Number [address] [address] [place] Basic Metabolic Panel (01/07/2019 8:06 AM CDT)Only the most recent of4 resultswithin the time period is included. Sodium 129 (L) 136 - 145 meq/L [facility] Potassium 4.8 3.5 - 5.1 meq/L [facility] Chloride 99 98 - 107 meq/L [facility] CO2 23 22 - 29 meq/L [facility] BUN 11 7 - 21 mg/dL [facility] Creatinine 0.88 0.57 - 1.25 mg/dL [facility] Glucose 105 70 - 105 mg/dL [facility] Calcium 9.3 8.4 - 10.2 mg/dL [facility] EGFR 86Comment: ESTIMATED GFR IS mL/min/1.73 sq m [facility] NOT ACCURATE CREATININE [facility] CLEARANCE IN PREDICTING GLOMERULAR FILTRATION RATE. ESTIMATED GFR IS NOT APPLICABLE FOR DIALYSIS PATIENTS. Specimen Blood Performing Organization Address City/State/Zipcode Phone Number [place] [phone] [place] [address] [place] myocardial perfusion SPECT,pharm(Lexiscan) (01/06/2019 1:09 PM CDT) Specimen Narrative Performed At FINAL REPORT [place] PROCEDURE: MYOCARDIAL PERFUSION SPECT IMAGING (Rest/Stress) CPT CODE: 84138 INDICATION: ventricular arrhythmia CARDIOVASCULAR PROFILE: CAD History: [...] MD Report Verified Date/Time:01/06/2019 16:31:33 Reading Location: [address] Reading Room Procedure Note Interface, External Ris In - 01/06/2019 4:33 PM CDT FINAL REPORT PROCEDURE: MYOCARDIAL PERFUSION SPECT IMAGING (Rest/Stress) CPT CODE: 11119 INDICATION: ventricular arrhythmia CARDIOVASCULAR PROFILE: CAD History: [...] Report Verified Date/Time: 01/06/2019 16:31:33 Reading Location: [address] Reading Room Performing Organization Address City/State/[facility] Centercode Phone Number GE RIS Treadmill tolerance(Non-Nuclear Treadmill) (01/06/2019 11:28 AM CDT) Specimen Narrative Performed At Protocol Name [employer] GE MUSE Time In Exercise Phase 00:01:00 [...] - 01/18/2019 10:43 AM CDT Protocol Name [employer] Metric[employer]elina Time In Exercise Phase 00:01:00 Max. Systolic [...] on 01/18/2019 10:43:31 AM Performing Organization Address City/[facility] Phone Number GE MUSE ECG 12 lead (01/06/2019 11:17 AM CDT)Only the most recent of3 resultswithin the time period is included. Specimen Narrative Performed At Ventricular Rate 64 BPM GE MUSE Atrial Rate 64 BPM P-R Interval 148 ms QRS Duration 102 ms Q-T Interval 400 ms QTC Calculation(Bazett) 412 ms P [place] 49 degrees R [place] 47 degrees T [place] 61 degrees Normal sinus rhythm Normal ECG Confirmed by MD TSANG JORGE ([id number]) on 01/15/2019 12:00:51 PM Procedure Note Interface, External Ris In - 01/15/2019 12:01 PM CDT Ventricular Rate 64 BPM Atrial Rate 64 BPM P-R Interval 148 ms QRS Duration 102 ms Q-T Interval 400 ms QTC Calculation(Bazett) 412 ms P [place] 49 degrees R [place] 47 degrees T [place] 61 degrees Normal sinus rhythm Normal ECG Confirmed by MD TSANG JORGE ([id number]) on 01/15/2019 12:00:51 PM Performing Organization Address [facility] Phone Number [employer] ECHOCARDIOGRAM REPORT - SCAN (01/04/2019 9:21 PM CDT) Narrative Performed At MR brain without IV contrast (01/04/2019 6:35 PM CDT) Specimen Narrative Performed At FINAL REPORT [place] MR, BRAIN, WITHOUT CONTRAST INDICATION: Stroke Stroke [...] MD Report Verified Date/Time:01/04/2019 19:00:21 Reading Location: [address] Neuro Reading Room Procedure Note Interface, [...] Report Verified Date/Time: 01/04/2019 19:00:21 Reading Location: [facility] C013 Neuro Reading Room Performing Organization Address City/State/Zipcode Phone Number [place] CT abdomen/pelvis with IV contrast (01/04/2019 5:58 PM CDT) Specimen Narrative Performed At FINAL REPORT [place] TECHNIQUE: CT of the chest, abdomen, and [...] MD Report Verified Date/Time:01/04/2019 22:53:46 Reading Location: [address] Consult Reading Room Procedure Note Interface, [...] Report Verified Date/Time: 01/04/2019 22:53:46 Reading Location: [address] Consult Reading Room Performing Organization Address City/State/Zipcode Phone Number [place] CT chest with IV contrast (01/04/2019 5:58 PM CDT) Specimen Narrative Performed At FINAL REPORT [place] TECHNIQUE: CT of the chest, abdomen, and [...] MD Report Verified Date/Time:01/04/2019 22:53:46 Reading Location: [address] Consult Reading Room Procedure Note Interface, [...] Report Verified Date/Time: 01/04/2019 22:53:46 Reading Location: [address] Consult Reading Room Performing Organization Address [facility] Centercode Phone Number GE RIS Hepatic function panel (01/04/2019 1:46 PM CDT) Protein, Total 7.1Comment: Specimen 6.0 - 8.3 gm/dL [facility] slightly hemolyzed [facility] Albumin 3.7Comment: Specimen 3.5 - 5.0 g/dL [facility] slightly hemolyzed [facility] Total Bilirubin 0.6Comment: Specimen 0.2 - 1.2 mg/dL [facility] hemolyzed [facility] Bilirubin, Direct 0.2Comment: Specimen 0.1 - 0.5 mg/dL [facility] hemolyzed [facility] Alkaline Phosphatase 91 40 - 150 U/L [facility] AST 33Comment: Specimen 5 - 34 U/L [facility] hemolyzed [facility] ALT 64 (H)Comment: Specimen 6 - 55 U/L [facility] slightly hemolyzed [facility] Specimen Blood Performing Organization Address [facility] Centercoin Phone Number [facility] [address] [place] [phone] CENTER Magnesium (01/04/2019 10:00 AM CDT)Only the most recent of2 resultswithin the time period is included. Magnesium 2.8 (H)Comment: Specimen 1.6 - 2.6 mg/dL [facility] moderately hemolyzed [facility] Specimen Blood Performing Organization Address [facility] Centercode Phone Number [facility] [address] [place] [phone] C[place] 2D Echo W/Doppler(CW/PW/Color) with saline (01/04/2019 9:27 AM CDT) Ejection Fraction [facility] Specimen Narrative Performed At Transthoracic Echocardiography Report (TTE) [facility] ECHO [facility]ART[facility] MKCKESSON [facility] Demographics Patient NameEmperatriz MCLAUGHLIN of Study01/04/2019 Male Visit [id number] Unknown Room [id number] Number Date of 1950Referring Jose Cai MD 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 Mi [id number]-[id number] mitral annular calcification. 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 Mitral Valve Mild MV leaflet thickening. Vred-ri-[id number] mitral annular calcification. Tricuspid Valve TV is [...] CDT) Phosphorus 3.2 2.3 - 4.7 mg/dL [facility] Specimen Blood Narrative Performed At Fasting [facility] Check Serum Phosphorus level 4 hours after IV phosphorus replacement. Performing Organization Address [facility] Centercode Phone Number [address] [address] [place] Fasting lipid panel (01/04/2019 3:43 AM CDT) Triglycerides 71 mg/dL [facility] Cholesterol 181 mg/dL [facility] HDL 43 mg/dL [facility] LDL Calculated 124 mg/dL [facility] Specimen Blood Narrative Performed At Triglyceride Reference Range: [facility] Low Risk <150 [id number] High Risk 200-499 Very High Risk>=500 Cholesterol Reference Range: Low Risk <200 [id number] High Risk>240 HDL Cholesterol Reference Range: Low Risk >=60 High Risk <40 LDL Cholesterol Reference Range: Optimal<100 Near Fhuwrap146-121 [id number] [id number] Very High >=190 Fasting Check Serum Phosphorus level 4 hours after IV phosphorus replacement. Performing Organization Address City/[facility] Centercode Phone Number [address] [address] CENTER TSH (01/03/2019 7:33 PM CDT) TSH 3.60 0.35 - 4.94 uIU/mL [facility] Specimen Blood Performing Organization Address City/[facility]/Zipcode Phone Number [facility] [address] CENTER Hemoglobin A1c (01/03/2019 7:33 PM CDT) Hemoglobin A1C 6.9 (H) 4.3 - 6.1 % [facility] Specimen Blood Performing Organization Address City/State/Zipcode Phone Number [address] [address] [place] Vitamin B12 (01/03/2019 7:33 PM CDT) Vitamin B12 804 213 - 816 pg/mL [facility] Specimen Blood Performing Organization Address City/[facility]/Zipcode Phone Number [address] [address] CENTER after 02/21/2018 Insurance Payer Benefit Plan / Group Subscriber ID Type Phone Address [employer] - MEDICARE AARP/MEDICARE COMPLETE xxxxxxxxx MGD CARE Advance Directives For more information, please contact:[address] [phone] Code Status Date Activated Date Inactivated Comments Full Code 01/03/2019 7:07 PM 01/08/2019 1:10 PM This code status was determined by: Patient
--- OUTSIDE RECORDS SUMMARY | 2019-02-22 00:38 | XMS REPORT ---
:1950 [facility] [address] [place] [address] Care Team Providers Name Role Phone JAY [...] Comments SODIUM (BEAKER) (test 129 meq/L 136-145 dlvy=496) POTASSIUM (BEAKER) (test 4.8 meq/L 3.5-5.1 kiqt=308) CHLORIDE (BEAKER) (test 99 meq/L 98-107 rnkd=709) CO2 (BEAKER) (test wlpi=945) 23 meq/L 22-29 BLOOD UREA NITROGEN (BEAKER) 11 mg/dL 7-21 (test vmgl=440) CREATININE (BEAKER) (test 0.88 mg/dL 0.57-1.25 zufq=930) GLUCOSE RANDOM (BEAKER) 105 mg/dL 70-105 (test lzgw=327) CALCIUM (BEAKER) (test 9.3 mg/dL 8.4-10.2 vcfv=032) EGFR (BEAKER) (test 86 mL/min/1.73 sq m ESTIMATED GFR IS NOT jlja=2229) ACCURATE CREATININE CLEARANCE IN PREDICTING GLOMERULAR FILTRATION RATE. ESTIMATED GFR IS NOT APPLICABLE FOR DIALYSIS PATIENTS. PROTHROMBIN TIME/[id number] 08:34:00 Test Item Value Reference Range Comments PROTIME (BEAKER) (test ipui=626) 13.0 seconds 11.9-14.2 INR (BEAKER) (test ituz=976) 1.0 <=5.9 Effective 12/16/2018: PT Reference Range ChangeNew: 11.9-14.2 Previous: 11.7- 14.7RECOMMENDED COUMADIN/WARFARIN INR THERAPY RANGESSTANDARD DOSE: 2.0-3.0 Includes: PROPHYLAXIS for venous thrombosis, systemic embolization; TREATMENT for venous thrombosis and/or pulmonary embolus.HIGH RISK: Target INR is2.5-3.5 for patients wiht mechanical heart valves.CBC W/PLT COUNT & AUTO [id number] 08:15:00 Test Item Value Reference Range Comments WHITE BLOOD CELL COUNT (BEAKER) (test fmkp=477) 9.1 K/ L 3.5-10.5 RED BLOOD CELL COUNT (BEAKER) (test wngn=786) 5.24 M/ L 4.63-6.08 HEMOGLOBIN (BEAKER) (test kpld=707) 15.4 GM/DL 13.7-17.5 HEMATOCRIT (BEAKER) (test aejr=669) 44.4 % 40.1-51.0 MEAN CORPUSCULAR VOLUME (BEAKER) (test uijr=511) 84.7 fL 79.0-92.2 MEAN CORPUSCULAR HEMOGLOBIN (BEAKER) (test 29.4 pg 25.7-32.2 hmfo=610) MEAN CORPUSCULAR HEMOGLOBIN CONC (BEAKER) (test 34.7 GM/DL 32.3-36.5 zdmh=432) RED CELL DISTRIBUTION WIDTH (BEAKER) (test 13.3 % 11.6-14.4 ogoz=986) PLATELET COUNT (BEAKER) (test rywe=146) 229 K/CU MM 150-450 MEAN PLATELET VOLUME (BEAKER) (test jpiw=329) 9.5 fL 9.4-12.4 NUCLEATED RED BLOOD CELLS (BEAKER) (test 0 /100 WBC 0-0 nkpt=632) NEUTROPHILS RELATIVE PERCENT (BEAKER) (test 66 % rkyc=936) LYMPHOCYTES RELATIVE PERCENT (BEAKER) (test 21 % lmwx=468) MONOCYTES RELATIVE PERCENT (BEAKER) (test 10 % eoig=096) EOSINOPHILS RELATIVE PERCENT (BEAKER) (test 2 % snsi=697) BASOPHILS RELATIVE PERCENT (BEAKER) (test 1 % golw=826) NEUTROPHILS ABSOLUTE COUNT (BEAKER) (test 6.00 K/ L 1.78-5.38 hwkr=433) LYMPHOCYTES ABSOLUTE COUNT (BEAKER) (test 1.86 K/ L 1.32-3.57 pnjk=069) MONOCYTES ABSOLUTE COUNT (BEAKER) (test 0.91 K/ L 0.30-0.82 jywy=172) EOSINOPHILS ABSOLUTE COUNT (BEAKER) (test 0.18 K/ L 0.04-0.54 pact=238) BASOPHILS ABSOLUTE COUNT (BEAKER) (test 0.08 K/ L 0.01-0.08 iwfr=391) IMMATURE GRANULOCYTES-RELATIVE PERCENT (BEAKER) 0 % 0-1 (test puiz=1586) MYOCARD IMAGING, MULTI, PHARM, [id number] 16:31:00FINAL REPORT PROCEDURE: MYOCARDIAL PERFUSION SPECT IMAGING (Rest/Stress)CPT CODE : 06658 INDICATION: ventricular arrhythmia CARDIOVASCULAR PROFILE:CAD History: NoneRisk [...] MDReport Verified Date/Time: 2018 16:31:33 Reading Location: [address] Reading Room [facility] METABOLIC [id number] 05:10:00 Test Item Value Reference Range Comments SODIUM (BEAKER) (test 128 meq/L 136-145 qlni=391) POTASSIUM (BEAKER) (test 4.6 meq/L 3.5-5.1 ldph=132) CHLORIDE (BEAKER) (test 99 meq/L 98-107 eggc=959) CO2 (BEAKER) (test 22 meq/L 22-29 jmlg=445) BLOOD UREA NITROGEN 14 mg/dL 7-21 (BEAKER) (test aqup=885) CREATININE (BEAKER) (test 0.88 mg/dL 0.57-1.25 nnkc=660) GLUCOSE RANDOM (BEAKER) 147 mg/dL 70-105 (test tyxs=596) CALCIUM (BEAKER) (test 8.9 mg/dL 8.4-10.2 ahlf=095) EGFR (BEAKER) (test 86 mL/min/1.73 sq m ESTIMATED GFR IS NOT rxbm=3720) ACCURATE CREATININE CLEARANCE IN PREDICTING GLOMERULAR FILTRATION RATE. ESTIMATED GFR IS NOT APPLICABLE FOR DIALYSIS PATIENTS. CBC W/PLT COUNT & AUTO [id number] 04:44:00 Test Item Value Reference Range Comments WHITE BLOOD CELL COUNT (BEAKER) (test tnzh=210) 10.0 K/ L 3.5-10.5 RED BLOOD CELL COUNT (BEAKER) (test zsip=743) 4.89 M/ L 4.63-6.08 HEMOGLOBIN (BEAKER) (test wscm=399) 14.3 GM/DL 13.7-17.5 HEMATOCRIT (BEAKER) (test fgjq=191) 41.9 % 40.1-51.0 MEAN CORPUSCULAR VOLUME (BEAKER) (test dlua=107) 85.7 fL 79.0-92.2 MEAN CORPUSCULAR HEMOGLOBIN (BEAKER) (test 29.2 pg 25.7-32.2 vcid=489) MEAN CORPUSCULAR HEMOGLOBIN CONC (BEAKER) (test 34.1 GM/DL 32.3-36.5 thor=558) RED CELL DISTRIBUTION WIDTH (BEAKER) (test 13.6 % 11.6-14.4 lnrk=371) PLATELET COUNT (BEAKER) (test veue=725) 215 K/CU MM 150-450 MEAN PLATELET VOLUME (BEAKER) (test vpqi=300) 10.1 fL 9.4-12.4 NUCLEATED RED BLOOD CELLS (BEAKER) (test 0 /100 WBC 0-0 okbt=792) NEUTROPHILS RELATIVE PERCENT (BEAKER) (test 66 % xhwv=861) LYMPHOCYTES RELATIVE PERCENT (BEAKER) (test 21 % ksgb=187) MONOCYTES RELATIVE PERCENT (BEAKER) (test 10 % bofp=464) EOSINOPHILS RELATIVE PERCENT (BEAKER) (test 2 % xmxw=639) BASOPHILS RELATIVE PERCENT (BEAKER) (test 1 % rrvt=288) NEUTROPHILS ABSOLUTE COUNT (BEAKER) (test 6.62 K/ L 1.78-5.38 dahh=701) LYMPHOCYTES ABSOLUTE COUNT (BEAKER) (test 2.10 K/ L 1.32-3.57 wuzn=624) MONOCYTES ABSOLUTE COUNT (BEAKER) (test 0.99 K/ L 0.30-0.82 nozj=152) EOSINOPHILS ABSOLUTE COUNT (BEAKER) (test 0.16 K/ L 0.04-0.54 qdhy=657) BASOPHILS ABSOLUTE COUNT (BEAKER) (test 0.08 K/ L 0.01-0.08 wuyk=509) IMMATURE GRANULOCYTES-RELATIVE PERCENT (BEAKER) 0 % 0-1 (test ujdg=5833) BASIC METABOLIC [id number] 04:14:00 Test Item Value Reference Range Comments SODIUM (BEAKER) (test 127 meq/L 136-145 fryj=048) POTASSIUM (BEAKER) (test 5.1 meq/L 3.5-5.1 Specimen slightly bpdt=594) hemolyzed CHLORIDE (BEAKER) (test 97 meq/L 98-107 fdgg=361) CO2 (BEAKER) (test 23 meq/L 22-29 pwtu=997) BLOOD UREA NITROGEN 16 mg/dL 7-21 (BEAKER) (test aidj=362) CREATININE (BEAKER) (test 0.84 mg/dL 0.57-1.25 Specimen slightly vkyb=997) hemolyzed GLUCOSE RANDOM (BEAKER) 106 mg/dL 70-105 (test vowr=829) CALCIUM (BEAKER) (test 8.9 mg/dL 8.4-10.2 klpq=078) EGFR (BEAKER) (test 90 mL/min/1.73 sq m ESTIMATED GFR IS NOT rhfh=6636) ACCURATE CREATININE CLEARANCE IN PREDICTING GLOMERULAR FILTRATION RATE. ESTIMATED GFR IS NOT APPLICABLE FOR DIALYSIS PATIENTS. CBC W/PLT COUNT & AUTO [id number] 03:52:00 Test Item Value Reference Range Comments WHITE BLOOD CELL COUNT (BEAKER) (test aasw=195) 12.5 K/ L 3.5-10.5 RED BLOOD CELL COUNT (BEAKER) (test ledu=368) 5.13 M/ L 4.63-6.08 HEMOGLOBIN (BEAKER) (test xqwz=208) 15.1 GM/DL 13.7-17.5 HEMATOCRIT (BEAKER) (test nvfh=941) 43.5 % 40.1-51.0 MEAN CORPUSCULAR VOLUME (BEAKER) (test gyye=753) 84.8 fL 79.0-92.2 MEAN CORPUSCULAR HEMOGLOBIN (BEAKER) (test 29.4 pg 25.7-32.2 mrpx=853) MEAN CORPUSCULAR HEMOGLOBIN CONC (BEAKER) (test 34.7 GM/DL 32.3-36.5 ocul=704) RED CELL DISTRIBUTION WIDTH (BEAKER) (test 13.7 % 11.6-14.4 iysr=835) PLATELET COUNT (BEAKER) (test ssbe=289) 214 K/CU MM 150-450 MEAN PLATELET VOLUME (BEAKER) (test denr=724) 10.1 fL 9.4-12.4 NUCLEATED RED BLOOD CELLS (BEAKER) (test 0 /100 WBC 0-0 gaxh=522) NEUTROPHILS RELATIVE PERCENT (BEAKER) (test 69 % qnrf=099) LYMPHOCYTES RELATIVE PERCENT (BEAKER) (test 19 % rrqg=739) MONOCYTES RELATIVE PERCENT (BEAKER) (test 10 % kwbs=410) EOSINOPHILS RELATIVE PERCENT (BEAKER) (test 1 % jzvt=204) BASOPHILS RELATIVE PERCENT (BEAKER) (test 1 % ksvl=477) NEUTROPHILS ABSOLUTE COUNT (BEAKER) (test 8.58 K/ L 1.78-5.38 vqgj=193) LYMPHOCYTES ABSOLUTE COUNT (BEAKER) (test 2.32 K/ L 1.32-3.57 sanl=128) MONOCYTES ABSOLUTE COUNT (BEAKER) (test 1.27 K/ L 0.30-0.82 rxjw=070) EOSINOPHILS ABSOLUTE COUNT (BEAKER) (test 0.17 K/ L 0.04-0.54 vavk=937) BASOPHILS ABSOLUTE COUNT (BEAKER) (test 0.08 K/ L 0.01-0.08 ieku=996) IMMATURE GRANULOCYTES-RELATIVE PERCENT (BEAKER) 0 % 0-1 (test xipu=2845) CT, CHEST, WITH [id number] 22:53:00FINAL REPORT TECHNIQUE: CT of the chest, [...] MDReport Verified Date/Time: 01/04/2019 22:53:46 Reading Location: [address] Consult Reading Room CT, [id number] 22:53:00FINAL REPORT TECHNIQUE: CT of the chest, [...] MDReport Verified Date/Time: 01/04/2019 22:53:46 Reading Location: [address] Consult Reading Room MR, BRAIN, WITHOUT [id number] 19:00:00Reason for exam:->StrokeWhat is the patient's sedation [...] MDReport Verified Date/Time: 01/04/2019 19:00:21 Reading Location: [address] Neuro Reading Room HEPATIC FUNCTION [id number] 14:26:00 Test Item Value Reference Range Comments TOTAL PROTEIN (BEAKER) (test 7.1 gm/dL 6.0-8.3 Specimen slightly hemolyzed sqgo=130) ALBUMIN (BEAKER) (test 3.7 g/dL 3.5-5.0 Specimen slightly hemolyzed nwks=1244) BILIRUBIN TOTAL (BEAKER) (test 0.6 mg/dL 0.2-1.2 Specimen slightly hemolyzed kmtc=954) BILIRUBIN DIRECT (BEAKER) (test 0.2 mg/dL 0.1-0.5 Specimen slightly hemolyzed gzit=961) ALKALINE PHOSPHATASE (BEAKER) 91 U/L 40-150 (test gqwb=484) AST (SGOT) (BEAKER) (test 33 U/L 5-34 Specimen slightly hemolyzed acvj=930) ALT (SGPT) (BEAKER) (test 64 U/L 6-55 Specimen slightly hemolyzed jdtb=184) [id number] 12:14:00 Test Item Value Reference Range Comments MAGNESIUM (BEAKER) (test 2.8 mg/dL 1.6-2.6 Specimen moderately hemolyzed rrex=754) HEMOGLOBIN [id number] 08:02:00 Test Item Value Reference Range Comments HEMOGLOBIN A1C (BEAKER) (test tbwl=070) 6.9 % 4.3-6.1 [id number] 04:43:00 Test Item Value Reference Range Comments PHOSPHORUS (BEAKER) (test thhl=318) 3.2 mg/dL 2.3-4.7 FastingCheck Serum Phosphorus level 4 hours after IV phosphorus replacement.[id number] 04:43:00 Test Item Value Reference Range Comments MAGNESIUM (BEAKER) (test kyer=804) 2.1 mg/dL 1.6-2.6 FastingCheck Serum Phosphorus level 4 hours after IV phosphorus replacement.BASIC METABOLIC [id number] 04:43:00 Test Item Value Reference Range Comments SODIUM (BEAKER) (test 129 meq/L 136-145 yldx=794) POTASSIUM (BEAKER) (test 4.7 meq/L 3.5-5.1 znjz=130) CHLORIDE (BEAKER) (test 100 meq/L 98-107 vueb=923) CO2 (BEAKER) (test 22 meq/L 22-29 psio=698) BLOOD UREA NITROGEN 16 mg/dL 7-21 (BEAKER) (test pavj=259) CREATININE (BEAKER) (test 0.88 mg/dL 0.57-1.25 khoj=379) GLUCOSE RANDOM (BEAKER) 109 mg/dL 70-105 (test xohh=683) CALCIUM (BEAKER) (test 8.7 mg/dL 8.4-10.2 ilby=667) EGFR (BEAKER) (test 86 mL/min/1.73 sq m ESTIMATED GFR IS NOT yhcv=9803) ACCURATE CREATININE CLEARANCE IN PREDICTING GLOMERULAR FILTRATION RATE. ESTIMATED GFR IS NOT APPLICABLE FOR DIALYSIS PATIENTS. FastingCheck Serum Phosphorus level 4 hours after IV phosphorus replacement.LIPID [id number] 04:43:00 Test Item Value Reference Range Comments TRIGLYCERIDES (BEAKER) (test edzo=181) 71 mg/dL CHOLESTEROL (BEAKER) (test eedg=442) 181 mg/dL HDL CHOLESTEROL (BEAKER) (test jhmq=231) 43 mg/dL LDL CHOLESTEROL CALCULATED (BEAKER) (test 124 mg/dL wgtb=076) Triglyceride Reference Range: Low Risk <150 Borderline 150- 199 High Risk 200-499 Very High Risk >=500Cholesterol Reference Range: Low Risk <200 Borderline 200-239 High Risk > 240HDL Cholesterol Reference Range: Low Risk >=60 High Risk <40LDL Cholesterol Reference Range: Optimal <100 Near Optimal 100-129 Borderline 130-159 High 160-189 Very High >=190 [facility] level 4 hours after IV phosphorus replacement.CBC W/PLT COUNT & AUTO [id number] 04:10:00 Test Item Value Reference Range Comments WHITE BLOOD CELL COUNT (BEAKER) (test zxao=437) 13.1 K/ L 3.5-10.5 RED BLOOD CELL COUNT (BEAKER) (test salk=925) 5.01 M/ L 4.63-6.08 HEMOGLOBIN (BEAKER) (test zlgs=128) 15.0 GM/DL 13.7-17.5 HEMATOCRIT (BEAKER) (test pwub=642) 43.1 % 40.1-51.0 MEAN CORPUSCULAR VOLUME (BEAKER) (test bhrj=112) 86.0 fL 79.0-92.2 MEAN CORPUSCULAR HEMOGLOBIN (BEAKER) (test 29.9 pg 25.7-32.2 nlsr=218) MEAN CORPUSCULAR HEMOGLOBIN CONC (BEAKER) (test 34.8 GM/DL 32.3-36.5 ipua=531) RED CELL DISTRIBUTION WIDTH (BEAKER) (test 13.8 % 11.6-14.4 hhlu=806) PLATELET COUNT (BEAKER) (test ixka=492) 209 K/CU MM 150-450 MEAN PLATELET VOLUME (BEAKER) (test khgx=485) 10.1 fL 9.4-12.4 NUCLEATED RED BLOOD CELLS (BEAKER) (test 0 /100 WBC 0-0 wazu=296) NEUTROPHILS RELATIVE PERCENT (BEAKER) (test 73 % oxyd=941) LYMPHOCYTES RELATIVE PERCENT (BEAKER) (test 16 % wpll=003) MONOCYTES RELATIVE PERCENT (BEAKER) (test 9 % flav=602) EOSINOPHILS RELATIVE PERCENT (BEAKER) (test 1 % kzdm=261) BASOPHILS RELATIVE PERCENT (BEAKER) (test 1 % rhnr=322) NEUTROPHILS ABSOLUTE COUNT (BEAKER) (test 9.53 K/ L 1.78-5.38 bzlm=509) LYMPHOCYTES ABSOLUTE COUNT (BEAKER) (test 2.13 K/ L 1.32-3.57 ifig=054) MONOCYTES ABSOLUTE COUNT (BEAKER) (test 1.13 K/ L 0.30-0.82 ewof=658) EOSINOPHILS ABSOLUTE COUNT (BEAKER) (test 0.10 K/ L 0.04-0.54 cabj=289) BASOPHILS ABSOLUTE COUNT (BEAKER) (test 0.08 K/ L 0.01-0.08 kdni=061) IMMATURE GRANULOCYTES-RELATIVE PERCENT (BEAKER) 1 % 0-1 (test qndp=0549) [id number] 20:33:00 Test Item Value Reference Range Comments THYROID STIMULATING HORMONE (BEAKER) (test 3.60 uIU/mL 0.35-4.94 wxck=152) VITAMIN [id number] 20:33:00 Test Item Value Reference Range Comments VITAMIN B12 (BEAKER) (test xxqz=607) 804 pg/mL 213-816
--- NOTE | 2019-02-22 01:30 | ER ---
Nurse's Notes [facility] Name: Marcio Armas Age: 68 yrs Sex: Male : 1950 Arrival Date: 02/22/2019 Time: 00:40 Bed 20 Private MD: Diagnosis: Chest pain, unspecified;Nausea;Weakness Presentation: 02/22 01:05 Presenting complaint: Patient states: suddenly i feel nauseated. woke up at 1030PM rr5 tonight. having some chest tightness going to back pain my shoulders feels heavy pain score of 3/10. I am really not feeling well since afternoon. 01:05 Transition of care: patient was not received from another setting of care. Onset of rr5 symptoms was February 21, 2019 at 15:30. Risk Assessment: Do you want to hurt yourself or someone else? Patient reports desire/thoughts of hurting themselves or someone else. Provider notified. Initial Sepsis Screen: Does the patient meet any 2 criteria? No. Patient's initial sepsis screen is negative. Does the patient have a suspected source of infection? No. Patient's initial sepsis screen is negative. Care prior to arrival: None. 01:05 Method Of Arrival: Ambulatory rr5 01:05 Acuity: ANA 3 rr5 Triage Assessment: 01:00 General: Appears in no apparent distress. Behavior is calm, cooperative, appropriate cc3 for age. Pain: Complains of pain in epigastric. GI: Reports nausea. Historical: - Allergies: 01:15 No Known Allergies; rr5 - Home Meds: 01:31 proair [Active]; furosemide 20 mg Oral tab 1 tab once daily [Active]; lorazepam 0.5 mg cc3 Oral tab [Active]; sennosides oral oral [Active]; lisinopril 10 mg Oral tab 1 tab once daily [Active]; vitamin b1 [Active]; atorvastatin 80 mg oral tab 1 tab once daily [Active]; Dulcolax Oral [Active]; amlodipine 10 mg tab 1 tab once daily [Active]; Aspirin Low Dose 81 mg oral TbEC 1 tab once daily [Active]; carvedilol 3.125 mg oral tab 1 tab 2 times per day [Active]; Nitroglycerin SL [Active]; dulera inhalation [Active]; Aleve Oral [Active]; - PMHx: 01:15 COPD; Hepatitis C; rr5 - PSHx: 01:15 Hernia repair; shoulder surgery; rr5 - Immunization history:: Adult Immunizations up to date. - Social history:: Smoking status: Patient uses tobacco products, smokes two packs cigarettes per day. Patient uses alcohol, street drugs, marijuana. - Family history:: not pertinent. - Ebola Screening: : No symptoms or risks identified at this time. Screenin:00 Abuse screen: Denies threats or abuse. Denies injuries from another. Nutritional cc3 screening: No deficits noted. Tuberculosis screening: No symptoms or risk factors identified. Fall Risk Ambulatory Aid- None/Bed Rest/Nurse Assist (0 pts). Gait- Normal/Bed Rest/Wheelchair (0 pts) Mental Status- Oriented to own ability (0 pts). Assessment: 01:00 General: Appears in no apparent distress. uncomfortable, Behavior is calm, cooperative, cc3 appropriate for age. Pain: Complains of pain in epigastric. Neuro: Level of Consciousness is awake, alert, obeys commands, Oriented to person, place, time, situation, Appropriate for age. Cardiovascular: Capillary refill < 3 seconds Patient's skin is warm and dry. Respiratory: Airway is patent Respiratory effort is even, unlabored, Respiratory pattern is regular, symmetrical. GI: Abdomen is round distended. : No signs and/or symptoms were reported regarding the genitourinary system. EENT: No signs and/or symptoms were reported regarding the EENT system. Derm: Skin is intact, is fragile, Skin is pink, warm \T\ dry. normal. Musculoskeletal: Circulation, motion, and sensation intact. Range of motion: intact in all extremities. 02:43 Reassessment: Patient appears in no apparent distress at this time. Patient and/or cc3 family updated on plan of care and expected duration. Pain level reassessed. Patient is alert, oriented x 3, equal unlabored respirations, skin warm/dry/pink. tube test technician came to do repeat labs for the patient. 03:14 Reassessment: Patient appears in no apparent distress at this time. Patient and/or cc3 family updated on plan of care and expected duration. Pain level reassessed. Patient is alert, oriented x 3, equal unlabored respirations, skin warm/dry/pink. Patient denies pain at this time. Patient states feeling better. Patient states symptoms have improved. 03:45 Reassessment: Patient appears in no apparent distress at this time. Patient and/or cc3 family updated on plan of care and expected duration. Pain level reassessed. Patient is alert, oriented x 3, equal unlabored respirations, skin warm/dry/pink. Patient for admission, room available in 430, report called and handed over to RENETTA Vu for continuity of care and management. 04:30 Reassessment: Patient appears in no apparent distress at this time. Patient and/or cc3 family updated on plan of care and expected duration. Pain level reassessed. Patient is alert, oriented x 3, equal unlabored respirations, skin warm/dry/pink. Patient left ER for admission vitally stable by wheelchair escorted by coal gasification technician Mir and the patient's daughter. No valuables left in the patient's room. Patient denies pain at this time. Patient states feeling better. Patient states symptoms have improved. Vital Signs: 01:13 BP 145 / 71; Pulse 70; Resp 17; Temp 97.8; Pulse Ox 100% ; Weight 82.1 kg; Height 5 ft. rr5 5 in. (165.10 cm); Pain 3/10; 02:30 BP 123 / 63; Pulse 55; Resp 16 S; Pulse Ox 97% on R/A; cc3 03:04 BP 127 / 61; Pulse 55; Resp 16 S; Pulse Ox 98% on R/A; cc3 04:09 BP 127 / 64; Pulse 53; Resp 16 S; Pulse Ox 99% on R/A; cc3 01:13 Body Mass Index 30.12 (82.10 kg, 165.10 cm) rr5 ED Course: 00:40 Patient arrived in ED. ag3 00:52 Aristides Mcdowell MD is Attending Physician. red 01:00 Ivanna De Guzman is Primary Nurse. cc3 01:00 Arm band placed on right wrist. Patient notified of wait time. EKG completed in triage. cc3 Results shown to MD. 01:00 Patient has correct armband on for positive identification. Placed in gown. Bed in low cc3 position. Call light in reach. Side rails up X 1. after school program director on. Pulse ox on. NIBP on. 01:13 Triage completed. rr5 01:28 Eloisa Retana MD is Hospitalizing Provider. red 01:32 X-ray completed. Portable x-ray completed in exam room. Patient tolerated procedure kw well. 01:35 XRAY Chest (1 view) In Process Unspecified. EDMS 01:50 Missed attempt(s): 20 gauge forearm. Bleeding controlled, band aid applied, catheter oe tip intact. 02:01 Inserted saline lock: 22 gauge in left hand, using aseptic technique. Blood collected. oe Administered Medications: 01:40 Drug: Aspirin 81 mg Route: PO; cc3 02:15 Follow up: Response: No adverse reaction; Pain is decreased cc3 01:40 Drug: Lopressor 25 mg Route: PO; cc3 02:15 Follow up: Response: No adverse reaction cc3 01:42 Drug: Lovenox 1 mg/kg Route: Sub-Q; Site: right lower abdomen; cc3 02:15 Follow up: Response: No adverse reaction cc3 01:50 Drug: morphine 2 mg Route: IVP; Site: left hand; cc3 02:15 Follow up: Response: No adverse reaction; Pain is decreased cc3 01:53 Drug: Zofran 4 mg Route: IVP; Site: left hand; cc3 02:15 Follow up: Response: No adverse reaction; Nausea is decreased cc3 01:58 Drug: Pepcid 20 mg Route: IVP; Site: left hand; cc3 02:15 Follow up: Response: No adverse reaction; Pain is decreased cc3 Outcome: 01:29 Decision to Hospitalize by Provider. red 04:40 Patient left the ED. rr5 Signatures: Dispatcher [employer] EDNJ Aristides Mcdowell MD MD cha Whitley, Kimberlee kw Espinosa, Orlando oe Cordel, Charlene cc3 Nata Argueta Raymond, RENETTA RN rr5 Corrections: (The following items were deleted from the chart) 02:01 01:58 Inserted saline lock: 22 gauge in right hand, using aseptic technique. oe oe 03:14 02:43 Reassessment: tube test technician came to do repeat labs for the patient. cc3 cc3 04:44 04:30 Reassessment: Patient appears in no apparent distress at this time. Patient cc3 and/or family updated on plan of care and expected duration. Pain level reassessed. Patient is alert, oriented x 3, equal unlabored respirations, skin warm/dry/pink. Patient left ER for admission vitally stable by wheelchair escorted by VIRI evans Mir and the patient's daughter. No valuables left in the patient's room. Patient denies pain at this time. Patient states feeling better. Patient states symptoms have improved. cc3
--- NOTE | 2019-02-22 01:30 | EDPHYS ---
Physician Documentation [facility] Name: Marcio Armas Age: 68 yrs Sex: Male : 1950 Arrival Date: 02/22/2019 Time: 00:40 Bed 20 Private MD: ED Physician Aristides Mcdowell HPI: 02/22 01:25 This 68 yrs old Male presents to ER via Ambulatory with complaints of Nausea. red 01:25 The patient presents to the emergency department with nausea. Onset: The red symptoms/episode began/occurred just prior to arrival, yesterday. Possible causes: unknown. The symptoms are aggravated by nothing. The symptoms are alleviated by nothing. Associated signs and symptoms: Pertinent positives: nausea. Severity of symptoms: At their worst the symptoms were mild moderate in the emergency department the symptoms have improved mildly. The patient has not experienced similar symptoms in the past. Historical: - Allergies: 01:15 No Known Allergies; rr5 - Home Meds: 01:31 proair [Active]; furosemide 20 mg Oral tab 1 tab once daily [Active]; lorazepam 0.5 mg cc3 Oral tab [Active]; sennosides oral oral [Active]; lisinopril 10 mg Oral tab 1 tab once daily [Active]; vitamin b1 [Active]; atorvastatin 80 mg oral tab 1 tab once daily [Active]; Dulcolax Oral [Active]; amlodipine 10 mg tab 1 tab once daily [Active]; Aspirin Low Dose 81 mg oral TbEC 1 tab once daily [Active]; carvedilol 3.125 mg oral tab 1 tab 2 times per day [Active]; Nitroglycerin SL [Active]; dulera inhalation [Active]; Aleve Oral [Active]; - PMHx: 01:15 COPD; Hepatitis C; rr5 - PSHx: 01:15 Hernia repair; shoulder surgery; rr5 - Immunization history:: Adult Immunizations up to date. - Social history:: Smoking status: Patient uses tobacco products, smokes two packs cigarettes per day. Patient uses alcohol, street drugs, marijuana. - Family history:: not pertinent. - Ebola Screening: : No symptoms or risks identified at this time. ROS: 01:25 Constitutional: Negative for fever, chills, and weight loss, Eyes: Negative for injury, red pain, redness, and discharge, ENT: Negative for injury, pain, and discharge, Neck: Negative for injury, pain, and swelling, Respiratory: Negative for shortness of breath, cough, wheezing, and pleuritic chest pain, Back: Negative for injury and pain, : Negative for injury, bleeding, discharge, and swelling, MS/Extremity: Negative for injury and deformity, Skin: Negative for injury, rash, and discoloration, Neuro: Negative for headache, weakness, numbness, tingling, and seizure, Psych: Negative for depression, anxiety, suicide ideation, homicidal ideation, and hallucinations, Allergy/Immunology: Negative for hives, rash, and allergies, Endocrine: Negative for neck swelling, polydipsia, polyuria, polyphagia, and marked weight changes, Hematologic/Lymphatic: Negative for swollen nodes, abnormal bleeding, and unusual bruising. 01:25 Cardiovascular: Positive for chest pain, palpitations. 01:25 Abdomen/GI: Positive for nausea. Exam: 01:25 Constitutional: This is a well developed, well nourished patient who is awake, alert, red and in no acute distress. Head/Face: Normocephalic, atraumatic. Eyes: Pupils equal round and reactive to light, extra-ocular motions intact. Lids and lashes normal. Conjunctiva and sclera are non-icteric and not injected. Cornea within normal limits. Periorbital areas with no swelling, redness, or edema. ENT: Nares patent. No nasal discharge, no septal abnormalities noted. Tympanic membranes are normal and external auditory canals are clear. Oropharynx with no redness, swelling, or masses, exudates, or evidence of obstruction, uvula midline. Mucous membranes moist. Neck: Trachea midline, no thyromegaly or masses palpated, and no cervical lymphadenopathy. Supple, full range of motion without nuchal rigidity, or vertebral point tenderness. No Meningismus. Chest/axilla: Normal chest wall appearance and motion. Nontender with no deformity. No lesions are appreciated. Cardiovascular: Regular rate and rhythm with a normal S1 and S2. No gallops, murmurs, or rubs. Normal PMI, no JVD. No pulse deficits. Respiratory: Lungs have equal breath sounds bilaterally, clear to auscultation and percussion. No rales, rhonchi or wheezes noted. No increased work of breathing, no retractions or nasal flaring. Abdomen/GI: Soft, non-tender, with normal bowel sounds. No distension or tympany. No guarding or rebound. No evidence of tenderness throughout. Back: No spinal tenderness. No costovertebral tenderness. Full range of motion. Male : Normal genitalia with no discharge or lesions. Skin: Warm, dry with normal turgor. Normal color with no rashes, no lesions, and no evidence of cellulitis. MS/ Extremity: Pulses equal, no cyanosis. Neurovascular intact. Full, normal range of motion. Neuro: Awake and alert, GCS 15, oriented to person, place, time, and situation. Cranial nerves II-XII grossly intact. Motor strength 5/5 in all extremities. Sensory grossly intact. Cerebellar exam normal. Normal gait. Psych: Awake, alert, with orientation to person, place and time. Behavior, mood, and affect are within normal limits. Vital Signs: 01:13 BP 145 / 71; Pulse 70; Resp 17; Temp 97.8; Pulse Ox 100% ; Weight 82.1 kg; Height 5 ft. rr5 5 in. (165.10 cm); Pain 3/10; 02:30 BP 123 / 63; Pulse 55; Resp 16 S; Pulse Ox 97% on R/A; cc3 03:04 BP 127 / 61; Pulse 55; Resp 16 S; Pulse Ox 98% on R/A; cc3 04:09 BP 127 / 64; Pulse 53; Resp 16 S; Pulse Ox 99% on R/A; cc3 01:13 Body Mass Index 30.12 (82.10 kg, 165.10 cm) rr5 MDM: 00:52 Patient medically screened. [facility] 01:27 Data reviewed: vital signs, nurses notes, lab test result(s), EKG, radiologic studies. 02/22 00:55 Order name: Basic Metabolic Panel 02/22 00:55 Order name: CBC with Diff; Complete Time: 03:25 [facility] 02/22 00:55 Order name: LFT's red 02/22 00:55 Order name: Magnesium 02/22 00:55 Order name: NT PRO-BNP [facility] 02/22 00:55 Order name: PT-INR; Complete Time: 03:25 [facility] 02/22 00:55 Order name: Troponin (emerg Dept Use Only) [facility] 02/22 00:55 Order name: Lipase [facility] 02/22 02:20 Order name: Basic Metabolic Panel EDCT 02/22 02:20 Order name: CBC with Automated Diff EDCT 02/22 02:20 Order name: Lipid Profile EDCT 02/22 02:20 Order name: Lipid Profile EDCT 02/22 02:20 Order name: Troponin I EDCT 02/22 02:20 Order name: Troponin I EDCT 02/22 00:55 Order name: XRAY Chest (1 view) [facility] 02/22 00:55 Order name: EKG; Complete Time: 00:57 [facility] 02/22 00:55 Order name: Cardiac monitoring; Complete Time: 01:12 [facility] 02/22 00:55 Order name: EKG - Nurse/Tech; Complete Time: 01:11 [facility] 02/22 00:55 Order name: IV Saline Lock; Complete Time: 02:02 [facility] 02/22 02:20 Order name: CONS Physician Consult EDCT 02/22 02:20 Order name: Echo with Doppler EDCT 02/22 02:20 Order name: EKG Electrocardiogram EDCT 02/22 02:20 Order name: EKG Electrocardiogram EDCT 02/22 02:20 Order name: Troponin I EDCT 02/22 00:55 Order name: Labs collected and sent; Complete Time: 01:51 [facility] 02/22 00:55 Order name: O2 Per Protocol; Complete Time: 01:12 [facility] 02/22 00:55 Order name: O2 Sat Monitoring; Complete Time: 01:12 [facility] 02/22 00:55 Order name: Urine Dipstick-Ancillary (obtain specimen); Complete Time: 03:41 [facility] Administered Medications: 01:40 Drug: Aspirin 81 mg Route: PO; cc3 02:15 Follow up: Response: No adverse reaction; Pain is decreased cc3 01:40 Drug: Lopressor 25 mg Route: PO; cc3 02:15 Follow up: Response: No adverse reaction cc3 01:42 Drug: Lovenox 1 mg/kg Route: Sub-Q; Site: right lower abdomen; cc3 02:15 Follow up: Response: No adverse reaction cc3 01:50 Drug: morphine 2 mg Route: IVP; Site: left hand; cc3 02:15 Follow up: Response: No adverse reaction; Pain is decreased cc3 01:53 Drug: Zofran 4 mg Route: IVP; Site: left hand; cc3 02:15 Follow up: Response: No adverse reaction; Nausea is decreased cc3 01:58 Drug: Pepcid 20 mg Route: IVP; Site: left hand; cc3 02:15 Follow up: Response: No adverse reaction; Pain is decreased cc3 Disposition: 02/22/19 01:29 Hospitalization ordered by Eloisa Retana for Observation. Preliminary diagnosis are Chest pain, unspecified, Nausea, Weakness. - Bed requested for Telemetry/MedSurg (Inpatient). - Status is Observation. rr5 - Condition is Stable. - Problem is new. - Symptoms have improved. UTI on Admission? No Signatures: Dispatcher [employer] EDMS Nataliia Reyes RN RN mw Anderson, Corey, MD MD cha Cordel, Charlene cc3 Blaine Medel RN RN rr5 Natalia Baker ar5 Corrections: (The following items were deleted from the chart) 02:25 01:29 Hospitalization Ordered by Eloisa Retana MD for Observation. Preliminary mw diagnosis is Chest pain, unspecified; Nausea; Weakness. Bed requested for Telemetry/MedSurg (Inpatient). Status is Observation. Condition is Stable. Problem is new. Symptoms have improved. UTI on Admission? No. red 02:25 02:25 02/22/2019 01:29 Hospitalization Ordered by Eloisa Retana MD for Observation. ar5 Preliminary diagnosis is Chest pain, unspecified; Nausea; Weakness. Bed requested for Telemetry/MedSurg (Inpatient). Status is Observation. Condition is Stable. Problem is new. Symptoms have improved. UTI on Admission? No. mw 04:40 02:25 02/22/2019 01:29 Hospitalization Ordered by Eloisa Retana MD for Observation. rr5 Preliminary diagnosis is Chest pain, unspecified; Nausea; Weakness. Bed requested for Telemetry/MedSurg (Inpatient). Status is Observation. Condition is Stable. Problem is new. Symptoms have improved. UTI on Admission? No. ar5
[2019-02-22] MEDS ORDERED: ASPIRIN 81 MG CHEWABLE TABLET ONE (01:38)
[2019-02-22] MEDS ORDERED: ENOXAPARIN 80 MG/0.8 ML SQ ONE (01:39)
[2019-02-22] MEDS ORDERED: METOPROLOL TAR 25 MG TAB ONE (01:39)
[2019-02-22] MEDS ORDERED: ONDANSETRON 4 MG/2 ML VIAL ONE (01:39)
[2019-02-22] MEDS ORDERED: MORPHINE 2 MG/ML SYR ONE (01:39)
[2019-02-22] MEDS ORDERED: FAMOTIDINE 20 MG/2 ML VIAL IV ONE (01:40)
[2019-02-22] MEDS ORDERED: ACETAMINOPHEN 500 MG TAB PO PRN (02:15)
[2019-02-22] MEDS ORDERED: MORPHINE 4 MG/ML SYR IV PRN (02:15)
[2019-02-22 03:09] LABS: Absolute Lymphocytes (CBC) 2.5 K/uL (0.7-4.9); Hematocrit 38.2 % (39.6-49.0); MPV 8.9 fL (7.6-11.3)
[2019-02-22 03:10] LABS: Protime INR 1.04
[2019-02-22 03:27] LABS: ALT/SGPT 63 U/L (12-78); AST/SGOT 27 U/L (15-37); Albumin 3.3 g/dL (3.4-5.0); Alkaline Phosphatase 133 U/L (45-117); BUN Blood Urea Nitrogen 13 mg/dL (7-18); Bicarbonate 24 mmol/L (21-32); Bilirubin Direct 0.2 mg/dL (0-0.2); Bilirubin Total 0.7 mg/dL (0.2-1.0); Glucose Level 122 mg/dL (74-106); Lipase 191 U/L (73-393); Magnesium 2.1 mg/dL (1.8-2.4); NT PRO-BNP 114 pg/mL (<125); Potassium 4.1 mmol/L (3.5-5.1); Protein, Total 6.6 g/dL (6.4-8.2); Sodium Level 129 mmol/L (136-145); Troponin (Emerg Dept Use Only) < 0.02 ng/mL (0.0-0.045)
[2019-02-22] MEDS ORDERED: LORAZEPAM 0.5 MG TABLET PO PRN (06:29)
--- NOTE | 2019-02-22 07:43 | EKG ---
Test Date: 2019-02-22 Test Time: 01:09:54 Woven Paper Hat Mender: ANSHU MEASUREMENT RESULTS: Intervals: Rate: 64 CT: 158 QRSD: 96 QT: 404 QTc: 416 [place]: P: 51 CT: 158 QRS: 48 T: 59 INTERPRETIVE STATEMENTS: Normal sinus rhythm Nonspecific ST and T wave abnormality Abnormal ECG Compared to ECG 02/15/2019 20:23:07 No significant changes Electronically Signed On 02-22-19 07:41:54 CDT by Paul Stacy
[2019-02-22] MEDS: ASPIRIN EC 81 MG TAB PO SCH (08:26)
[2019-02-22] MEDS: METOPROLOL TAR 50 MG TAB PO SCH ×2 (08:27→20:16)
[2019-02-22] MEDS: LISINOPRIL 10 MG TAB PO SCH (08:29)
[2019-02-22] MEDS: AMLODIPINE 10 MG TAB PO SCH (08:29)
[2019-02-22] MEDS: ALPRAZOLAM 0.25 MG TABLET PO PRN ×2 (08:31→15:17)
[2019-02-22] MEDS: ALBUTEROL INHALER 60 PUFF/8 GM IH SCH ×2 (08:31→13:28)
--- NOTE | 2019-02-22 08:36 | RAD REPORT ---
EXAM DESCRIPTION: RAD - Chest Single View - 02/22/2019 1:34 am CLINICAL HISTORY: Cough COMPARISON: February 15, January 03 TECHNIQUE: AP portable chest image was obtained 0111 hours . FINDINGS: No peripheral mass or consolidation. Baseline interstitial pattern not significantly diffe rent from comparison heart size is normal. Upper lobe vasculature within normal limits. No measurable pleural effusion and no pneumothorax. No acute bony abnormality seen. Aorta is minimally tortuous. T here is fullness of the right side of the mediastinum at the hilum that is probably part of tortuous aorta. Margins are slightly shaggy. Likelihood of a mediastinal mass is low but does warrant follow-u p two view imaging or follow-up CT chest study. The patient has a more remote study that could be sub mitted as an alternative. IMPRESSION: No acute cardiopulmonary process. Right-sided mediastinal fullness warrants comparison to more remote imaging or follow-up CT chest chris dy.
[2019-02-22] MEDS ORDERED: ASPIRIN EC 81 MG TAB PO SCH (09:00)
[2019-02-22] MEDS ORDERED: PNEUMOCOCCAL VACCINE 0.5 ML IMVAC ONE (09:00)
[2019-02-22] MEDS ORDERED: DULERA 200/5 (MOMETASONE/FORMOTEROL) INHALER IH SCH (09:00)
[2019-02-22] MEDS ORDERED: CARVEDILOL 3.125 MG TAB PO SCH ×2 (09:00→21:00)
--- NOTE | 2019-02-22 09:22 | EKG ---
Test Date: 2019-02-22 Test Time: 07:53:46 Cloud Infrastructure Architect: FARHAD MEASUREMENT RESULTS: Intervals: Rate: 55 [place]: 166 QRSD: 102 QT: 438 QTc: 419 [place]: P: 32 [place]: 166 QRS: 40 T: 52 INTERPRETIVE STATEMENTS: Sinus bradycardia Nonspecific ST and T wave abnormality Abnormal ECG Compared to ECG 02/22/2019 01:09:54 Sinus rhythm no longer present ST (T wave) deviation still present Electronically Signed On 02-22-19 09:21:31 CDT by Paul Stacy
--- NOTE | 2019-02-22 09:57 | P.HP ---
Certification for Inpatient Patient admitted to: Observation With expected LOS: <2 Midnights Patient will require the following post-hospital care: None Practitioner: I am a practitioner with admitting privileges, knowledge of patient current condition, hospital course, and medical plan of care. Services: Services provided to patient in accordance with Admission requirements found in Title 42 Section 412.3 of the Code of Federal Regulations Patient History Date of Service: 02/22/19 Reason for admission: Chest pain rule out acute coronary syndrome/panic attacks History of Present Illness: Patient is a 68-year-old gentleman who came to the hospital with chest pain. Pain radiating to his back. Of time yet to the ER it was subsiding. However, he he has a strong family history of Coronary artery disease. His grandfather and father both of heart disease in their 50s. Patient has had a cardiac catheterization which revealed scarring. Patient was told that he had a prior myocardial infarction. He has been taking care of himself for the most part. However, a couple months ago he suffered a stroke. Since then he states he has frequent panic attacks. His father in from the him when he was a young boy he from a heart attack. Whenever his chest hurts he feels like this may happen a him. He states that he thinks about a lot of things and then starts getting tearful and upset. 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 He may need anxiolytics and he may need further treatment with a mood disorder from suffering from a stroke. Will have a follow with the neurologist as well. Will in the meantime rule amount for acute coronary syndrome with serial troponins and EKG. Cardiology consult as well. Allergies No Known Allergies Allergy (Verified 02/22/19 04:56) Home Medications: Albuterol Sulfate [Proair Hfa] 2 puff IH TID 02/22/19 Amlodipine Besylate 1 tab PO DAILY 02/22/19 Aspirin [Aspir-Low] 81 mg PO DAILY 02/22/19 Atorvastatin Calcium [Lipitor] 1 tab PO BEDTIME 02/22/19 Carvedilol 1 tab PO BID 02/22/19 LORazepam [Ativan*] 1 tab PO Q8H PRN 02/22/19 Lisinopril 1 tab PO DAILY 02/22/19 Mometasone/Formoterol [Dulera 200 Mcg/5 Mcg Inhaler] 1 puff IH DAILY 02/22/19 - Past Medical/Surgical History Has patient received pneumonia vaccine in the past: No Diabetic: Yes -: COPD -: Hep C -: hernia repair -: Shoulder surg - Family History Father Medical History: Heart disease - Social History Smoking Status: Former smoker Alcohol use: No CD- Drugs: No Caffeine use: Yes Place of Residence: Home Review of Systems 10-point ROS is otherwise unremarkable Physical Examination - Vital Signs Temperature: 98 F Blood Pressure: 132/64 Pulse: 55 Respirations: 20 Pulse Ox (%): 100 - Physical Exam General: Alert, In no apparent distress, Oriented x3 HEENT: Atraumatic, PERRLA, Mucous membr. moist/pink, EOMI, Sclerae nonicteric Neck: Supple, 2+ carotid pulse no bruit, No LAD, Without JVD or thyroid abnormality Respiratory: Clear to auscultation bilaterally, Normal air movement Cardiovascular: Regular rate/rhythm, Normal S1 S2 Gastrointestinal: Normal bowel sounds, No tenderness Musculoskeletal: No tenderness Integumentary: No rashes Neurological: Normal gait, Normal speech, Normal strength at 5/5 x4 extr, Normal tone, Normal affect Lymphatics: No axilla or inguinal lymphadenopathy - Studies Laboratory Data (last 24 hrs) 02/22/19 02:42: PT 12.2, INR 1.04 02/22/19 02:42: WBC 10.8, Hgb 13.2 L, Hct 38.2 L, Plt Count 185 02/22/19 02:42: Sodium 129 L, Potassium 4.1, BUN 13, Creatinine 0.72, Glucose 122 H, Magnesium 2.1 D, Total Bilirubin 0.7, AST 27, ALT 63, Alkaline Phosphatase 133 H, Lipase 191 Assessment & Plan - Problems (Diagnosis) (1) Chest pain, rule out acute myocardial infarction Current Visit: Yes Status: Acute (2) Panic attack Current Visit: Yes Status: Acute (3) History of stroke Current Visit: Yes Status: Acute - Plan 1. Serial troponins and EKG 2. Cardiology consultation 3. Echocardiogram and stress test if cardiology is agreeable 4. Anti-platelet therapy, anti coagulation, beta-parminder, statin, and O2 as needed 5. IV morphine for pain 6. Nitro p.r.n. - Advance Directives Does patient have a Living Will: No Does patient have a Durable POA for Healthcare: No
--- NOTE | 2019-02-22 12:07 | CON ---
Chief Complaint: Chest pain. History Of Present Illness: Mr. Armas went through a workup 12 years ago. He was told to have 1 vessel coronary heart disease, total occlusion. No stent was done. He had a stroke right before soraya t, but no vascular interventions were done for that. He has been seen Dr. Rangel since then and marcelina arently had a workup that may or may not have included a cardiac cath just 2 weeks ago. He was told everything was fine. No interventions were done then. He does not use any tobacco. He quit smoking 11 years ago. Two weeks ago, he said he quit drinking. Apparently, he has been a heavy drinker in the past. Medications: His outpatient medications have been Dulera, atorvastatin, albuterol, lorazepam, aspiri n, Coreg, lisinopril, and amlodipine. Physical Examination: General: He is 5 feet 5 inches, 176 pounds. HEENT: Unremarkable. Lungs: Clear. No carotid bruit. Heart: Within normal limits. Extremities: Diminished, but palpable distal pulses. His electrocardiogram shows a nonspecific ST abnormality. No infarction, injury, or ischemia. Tropo sofia level is normal. His sodium is 129. N-terminal proBNP 114. An echocardiogram is pending. The patient said he would refuse to do another heart catheterization or stress test. Encouraged us t o get records from Dr. Rangel. I would recommend we get records from Dr. Rangel. We will do an echo. If further enzymes are normal, he could be discharged. KIERA/LANDON Voice ID: [id number] Report ID: [id number]
--- NOTE | 2019-02-22 16:13 | ECHO ---
HEIGHT: 5 ft 5 in WEIGHT: 176 lb 1.6 oz DATE OF STUDY: 02/22/[address]: Eloisa Retana MD 2-DIMENSIONAL: YES M.MODE: YES DOPPLER: YES COLOR FLOW: YES TDS: YES PORTABLE: DEFINITY: BUBBLE STUDY: DIAGNOSIS: CHEST PAIN R/O ACS CARDIAC HISTORY: CATHERIZATION: NO SURGERY: NO PROSTHETIC VALVE: NO PACEMAKER: NO MEASUREMENTS (cm) DIASTOLIC (NORMALS) SYSTOLIC (NORMALS) IVSd 1.0 (0.6-1.2) LA Diam 3.6 (1.9-4.0) LVEF 57% LVIDd 4.1 (3.5-5.7) LVIDs 2.8 (2.0-3.5) %FS 30% LVPWd 1.2 (0.6-1.2) Ao Diam 3.3 (2.0-3.7) 2 DIMENSIONAL ASSESSMENT: RIGHT ATRIUM: NORMAL LEFT ATRIUM: NORMAL RIGHT VENTRICLE: NORMAL LEFT VENTRICLE: NORMAL TRICUSPID VALVE: NORMAL MITRAL VALVE: NORMAL PULMONIC VALVE: NORMAL AORTIC VALVE: SCLEROSIS PERICARDIAL EFFUSION: NONE AORTIC ROOT: NORMAL LEFT VENTRICULAR WALL MOTION: NORMAL DOPPLER/COLOR FLOW: NO AORTIC STENOSIS OR AORTIC REGURGITATION. COMMENTS: NORMAL LEFT VENTRICULAR EJECTION FRACTION. AORTIC SCLEROSIS WITH NO AORITC STENOSIS OR AORTIC REGURGITATION. OTHERWISE NORMAL TWO DIMENSIONAL ECHOCARDIOGRAM WITH DOPPLER. TECHNOLOGIST: NELSON PEARSON
[2019-02-22] MEDS ORDERED: ATORVASTATIN 80 MG TAB PO SCH (21:00)
[2019-02-23] MEDS: METOPROLOL TAR 50 MG TAB PO SCH (08:37)
[2019-02-23] MEDS: ASPIRIN EC 81 MG TAB PO SCH (08:40)
[2019-02-23] MEDS: AMLODIPINE 10 MG TAB PO SCH (08:40)
[2019-02-23] MEDS: LISINOPRIL 10 MG TAB PO SCH (08:41)
[2019-02-23] MEDS ORDERED: ENOXAPARIN 40 MG/0.4 ML SQ SCH (09:00)
--- NOTE | 2019-02-23 11:26 | P.SSS ---
Patient History Date of Service: 02/23/19 Reason for admission: Chest pain rule out acute coronary syndrome/panic attacks History of Present Illness: Patient is a 68-year-old gentleman who came to the hospital with chest pain. Pain radiating to his back. Of time yet to the ER it was subsiding. However, he he has a strong family history of Coronary artery disease. His grandfather and father both of heart disease in their 50s. Patient has had a cardiac catheterization which revealed scarring. Patient was told that he had a prior myocardial infarction. He has been taking care of himself for the most part. However, a couple months ago he suffered a stroke. Since then he states he has frequent panic attacks. His father in from the him when he was a young boy he from a heart attack. Whenever his chest hurts he feels like this may happen a him. He states that he thinks about a lot of things and then starts getting tearful and upset. 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 He may need anxiolytics and he may need further treatment with a mood disorder from suffering from a stroke. Will have a follow with the neurologist as well. Will in the meantime rule amount for acute coronary syndrome with serial troponins and EKG. Cardiology consult as well. Allergies No Known Allergies Allergy (Verified 02/22/19 04:56) Home Medications: Albuterol Sulfate [Proair Hfa] 2 puff IH TIDP PRN 02/22/19 Amlodipine Besylate 1 tab PO DAILY 02/22/19 Aspirin [Aspir-Low] 81 mg PO DAILY 02/22/19 Atorvastatin Calcium [Lipitor] 1 tab PO BEDTIME 02/22/19 Carvedilol 1 tab PO BID 02/22/19 LORazepam [Ativan*] 1 tab PO Q8H PRN 02/22/19 Lisinopril 1 tab PO DAILY 02/22/19 Mometasone/Formoterol [Dulera 200 Mcg/5 Mcg Inhaler] 1 puff IH DAILY 02/22/19 - Past Medical/Surgical History Has patient received pneumonia vaccine in the past: No Diabetic: Yes -: COPD -: Hep C -: hernia repair -: Shoulder surg - Family History Father -: Heart disease - Social History Smoking Status: Former smoker Alcohol use: No CD- Drugs: No Caffeine use: Yes Place of Residence: Home Review of Systems 10-point ROS is otherwise unremarkable Physical Examination - Vital Signs Temperature: 97.3 F Blood Pressure: 142/63 Pulse: 70 Respirations: 18 Pulse Ox (%): 99 - Physical Exam General: Alert, In no apparent distress HEENT: Atraumatic, PERRLA, Mucous membr. moist/pink, EOMI, Sclerae nonicteric Neck: Supple, 2+ carotid pulse no bruit, No LAD, Without JVD or thyroid abnormality Respiratory: Clear to auscultation bilaterally, Normal air movement Cardiovascular: Regular rate/rhythm, Normal S1 S2 Gastrointestinal: Normal bowel sounds, No tenderness Musculoskeletal: No tenderness Integumentary: No rashes Neurological: Normal gait, Normal speech, Normal strength at 5/5 x4 extr, Normal tone, Normal affect Lymphatics: No axilla or inguinal lymphadenopathy - Diagnosis (Problem(s)) (1) Chest pain, rule out acute myocardial infarction Current Visit: Yes Status: Acute (2) History of stroke Current Visit: Yes Status: Acute (3) Panic attack Current Visit: Yes Status: Acute Treatment Summary: Overall during the hospital stay patient remained stable Patient was initially admitted to the hospital for chest pain ACS rule out. Patient was started on ACS medication while here in the hospital. Troponin x2 was negative. EKG was negative. Cardiology was consulted who recommended getting records from his bead flipper outside. Records were received from bead flipper outside which were consistent with echo and stress test which were both within normal limits. At that time patient was advised to continue taking all his medical medication as prescribed by his bead flipper. Patient demonstrate understanding once he was chest pain free and was doing much better than before he was discharged home under stable condition. - Disposition Disposition: ROUTINE DISCHARGE Condition: GOOD Diet: Regular Activity: Ad crystal
--- NOTE | 2019-02-23 13:19 | PN ---
Date of Progress Note: 02/23/2019 The patient was admitted to Dr. Maier's service on 02/22/2019. He was seen by Dr. Armas on 9. The patient came in mostly with shortness of breath, atypical chest pain. He has had a recent CV A in the past, and had an AZ about 10 years ago with a known 100% RCA. He had a recent negative card iac workup at office. He refused any further testing. Echocardiogram was done yeste rday and was normal. Today, he is asymptomatic. He is requesting to go home. He is requesting for medication for anxiety. I will sign off his case. He can go home and follow up with at his convenience. LESLY Voice ID: [id number] Report ID: [id number]
== END 2019-02-23 12:30 | disposition home or self-care (01) ==
LOC: ER 00:34 → ERHOLD 03:08 → 4TH 03:55
PROVIDERS: ADMIT Hospitalist; ATTEND Family Medicine
DX: R07.89 Other chest pain (principal); I25.2 Old myocardial infarction; I65.21 Occlusion and stenosis of right carotid artery; F41.0 Panic disorder [episodic paroxysmal anxiety]; E11.9 Type 2 diabetes mellitus without complications; J44.9 Chronic obstructive pulmonary disease, unspecified; I70.0 Atherosclerosis of aorta; R00.1 Bradycardia, unspecified; R94.31 Abnormal electrocardiogram [ECG] [EKG]; Z79.82 Long term (current) use of aspirin; Z79.899 Other long term (current) drug therapy; Z82.49 Family history of ischemic heart disease and other diseases of the circulatory system; Z87.891 Personal history of nicotine dependence; Z86.19 Personal history of other infectious and parasitic diseases; Z86.73 Personal history of transient ischemic attack (TIA), and cerebral infarction without residual deficits
CPT/HCPCS: 93005 ×2; 93306; 85025; 80048; 36415; 83735; 85610; 82962; 80076; 84484 ×3; 83690; 83880; 71045; 96375; 96372; 96374; 99284; G0379; J1650 ×2; J2270; J2405; G0378